=== PATIENT | male | born 1935 | race Caucasian/White ===

== ENCOUNTER 2019-01-22 12:29 | Observation (INO) | payer MEDICARE, OTHER ==
[2019-01-22 13:08] LABS: CHLORIDE,CL 102 mEq/L (98-106); SODIUM,NA 138 mEq/L (136-145)
--- NOTE | 2019-01-22 13:29 | EDM.PDOC ---
ED HPI GENERAL MEDICAL PROBLEM - General Chief Complaint: Cardiovascular Problem Stated Complaint: CP Time Seen by Provider: 01/22/19 12:51 Source of Information: Reports: Patient, EMS History Limitations: Reports: No Limitations - History of Present Illness INITIAL COMMENTS - FREE TEXT/NARRATIVE: Patient presents to ER with EMS with complaints of chest pain. 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 EMS was called for chest pain or diabetic reaction. EMS states was awake and complaining of chest pain on their arrival. Patient does not recall this. Blood sugar was checked, was 133. Enroute to our facility, patient went unresponsive for a few minutes. Did apply sternal rub and he did arouse. Blood pressure was stable. Did not yet have radiation monitor on. Was given 4 baby ASA and 2 nitro after for complaints of chest pain. Alert and oriented on arrival. Denies chest pain, shortness of breath, nausea at this time. "just feel tired". Does admit that he is sore on his chest "on the bone". Initial EKG shows sinus rhythm. Patient was recently in for pre-op with Dr. Maradiaga as is to have back surgery on February 02. EKG and chest xray were normal. Has had recent carotid ultrasound which did show less than 65% blockage. Onset: Today, Sudden Duration: Minutes: Location: Reports: Chest Associated Symptoms: Reports: Chest Pain, Weakness. Denies: Confusion, Cough, Fever/Chills, Loss of Appetite, Nausea/Vomiting, Shortness of Breath Treatments CLINICAL RESEARCH ASSISTANT: Reports: EKG, Nitroglycerin Middle Sternum Pain Score (Numeric/FACES): 6 - Related Data Allergies Allergy/AdvReac Type Severity Reaction Status Date / Time Thai walnut Allergy Cannot Verified 01/22/19 12:38 Remember shellfish derived Allergy Rash Verified 01/22/19 12:38 Home Meds: Home Meds Ascorbic Acid [Vitamin C] 1,000 mg PO DAILY 08/19/14 [History] Clopidogrel Bisulfate [Clopidogrel] 75 mg PO DAILY 08/19/14 [History] Enalapril Maleate 5 mg PO DAILY 08/19/14 [History] Furosemide 80 mg PO DAILY 08/19/14 [History] Simvastatin 20 mg PO BEDTIME 08/19/14 [History] Allopurinol [Zyloprim] 150 mg PO DAILY #0 08/21/14 [Rx] Citalopram Hydrobromide [Celexa] 20 mg PO DAILY #0 08/21/14 [Rx] Insulin Aspart Protam & Aspart [Novolog Mix 70-30 Flexpen Syrn] 36 unit SQ ACBREAKFAST 01/16/15 [History] Insuln Asp Prot/Insulin Aspart [NovoLOG Mix 70-30] 18 units SUBCUT ACDINNER [History] Cefuroxime Axetil [Ceftin] 250 mg PO BID 01/22/19 [History] Clindamycin Phosphate 1 applic TOP BID 01/22/19 [History] amLODIPine Besylate [Amlodipine Besylate] 10 mg PO DAILY 01/22/19 [History] Past Medical History Cardiovascular History: Reports: Hypertension Endocrine/Metabolic History: Reports: Other (See Below) Other Endocrine/Metabolic History: Diabetes, unknown type Social & Family History - Family History Family Medical History: Noncontributory - Tobacco Use Smoking Status *Q: Never Smoker - Caffeine Use Caffeine Use: Reports: None - Recreational Drug Use Recreational Drug Use: No ED ROS GENERAL - Review of Systems Review Of Systems: See Below Constitutional: Reports: Malaise, Weakness. Denies: Fever, Chills HEENT: Reports: No Symptoms Respiratory: Denies: Shortness of Breath Cardiovascular: Reports: Chest Pain. Denies: Edema, Lightheadedness Endocrine: Reports: Fatigue GI/Abdominal: Denies: Abdominal Pain, Nausea, Vomiting : Reports: No Symptoms Musculoskeletal: Reports: No Symptoms Skin: Reports: No Symptoms Neurological: Reports: Syncope, Weakness ED EXAM, GENERAL - Physical Exam Exam: See Below Exam Limited By: No Limitations General Appearance: Alert, WD/WN, No Apparent Distress Ears: Normal External Exam, Normal TMs Nose: Normal Inspection, Normal Mucosa, No Blood Throat/Mouth: Normal Inspection, Normal Oropharynx Head: Normocephalic Neck: Normal Inspection, Supple, Non-Tender Respiratory/Chest: No Respiratory Distress, Lungs Clear, Normal Breath Sounds Cardiovascular: Bradycardia GI/Abdominal: Normal Bowel Sounds, Soft, Non-Tender Extremities: Normal Inspection, Pedal Edema Neurological: Alert, Oriented Skin Exam: Warm, Dry Course - Vital Signs Last Recorded V/S: Last Vital Signs Temp 97.8 F 01/22/19 13:00 Pulse 54 L 01/22/19 13:00 Resp 20 01/22/19 13:00 BP 160/76 H 01/22/19 13:00 Pulse Ox 96 01/22/19 13:00 - Orders/Labs/Meds Orders: Active Orders 24 hr Category Date Time Status Chest 1V Frontal [CR] Routine Exams 01/22/19 Ordered INR,PT,PROTHROMBIN TIME [COAG] Stat Lab 01/22/19 12:48 Ordered PTT,PARTIAL THROMBOPLSTIN TIME [COAG] Stat Lab 01/22/19 12:48 Ordered EKG 12 Lead [EK] Routine Ther 01/22/19 12:38 Ordered Labs: Laboratory Tests 01/22/19 01/22/19 Range/Units 12:48 12:48 WBC 6.6 (5.0-10.0) 10^3/uL RBC 3.95 L (4.50-6.00) 10^6/uL Hgb 11.8 L (14.0-18.0) g/dL Hct 36.0 L (40.0-54.0) % MCV 91.1 (82.0-94.0) fL MCH 29.9 (27.0-32.0) pg MCHC 32.8 L (33.0-38.0) g/dL RDW Coeff of Adrian 13.3 (11.0-15.0) % Plt Count 309 (150-400) 10^3/uL Neut % (Auto) 66.2 (35-85) % Lymph % (Auto) 10.6 (10-55) % [place] % (Auto) 17.7 H (0-16) % Eos % (Auto) 5.0 (0-5) % Baso % (Auto) 0.5 (0-3) % Neut # (Auto) 4.38 (1.80-7.00) 10^3/uL Lymph # (Auto) 0.70 L (1.00-4.80) 10^3/uL [place] # (Auto) 1.17 H (0.00-0.80) 10^3/uL Eos # (Auto) 0.33 (0.00-0.45) 10^3/uL Baso # (Auto) 0.03 10^3/uL Sodium 138 (136-145) mEq/L Potassium 4.1 (3.5-5.0) mEq/L Chloride 102 (98-106) mEq/L Carbon Dioxide 27 (21-32) mmol/L BUN 33 H (7-18) mg/dL Creatinine 2.1 H (0.7-1.3) mg/dL Est Cr Clr Drug Dosing 30.12 mL/min Estimated GFR (MDRD) 30 L (>=60) mL/min Glucose 125 H (75-99) mg/dL Calcium 8.9 (8.4-10.1) mg/dL Lactate Dehydrogenase 180 (100-190) U/L Creatine Kinase 246 H (35-232) U/L Troponin I < 0.017 (0.00-0.06) ng/mL - Re-Assessments/Exams Free Text/Narrative Re-Assessment/Exam: 01/22/19 1330- labs are stable. Creatinine 2.1, baseline around 2. CK elevated. Telemetry notes rate to be the in 50s in ER much of time. Will admit for cardiac monitoring, repeat enzymes. 6 Departure - Departure Time of Disposition: 14:00 Disposition: Refer to Observation Condition: Fair Clinical Impression: Chest pain, Syncope - Problem List & Annotations (1) Chest pain SNOMED Code(s): 61682122 Code(s): R07.9 - CHEST PAIN, UNSPECIFIED Status: Acute Priority: High Current Visit: Yes Onset Date: 08/19/14 (2) Syncope SNOMED Code(s): 955991307 Code(s): R55 - SYNCOPE AND COLLAPSE Status: Acute Priority: High Current Visit: Yes - Problem List Review Problem List Initiated/Reviewed/Updated: Yes - My Orders Last 24 Hours: My Active Orders 01/22/19 12:38 EKG 12 Lead [EK] Routine 01/22/19 12:48 INR,PT,PROTHROMBIN TIME [COAG] Stat PTT,PARTIAL THROMBOPLSTIN TIME [COAG] Stat - Assessment/Plan Admission H&P: Please use this note as an admission H&P Last 24 Hours: My Active Orders 01/22/19 12:38 EKG 12 Lead [EK] Routine 01/22/19 12:48 INR,PT,PROTHROMBIN TIME [COAG] Stat PTT,PARTIAL THROMBOPLSTIN TIME [COAG] Stat Assessment:: Chest Pain Syncope Plan: Admit to observation. Cardiac monitoring. Repeat cardiac enzymes, EKG
[2019-01-22] MEDS ORDERED: Sodium Chloride 0.9% 10 ML Syringe FLUSH PRN (14:34)
[2019-01-22] MEDS ORDERED: Ondansetron 4 MG Tab.DIS PO PRN (14:34)
[2019-01-22] MEDS ORDERED: Acetaminophen 325 MG Tab PO PRN (14:34)
[2019-01-22] MEDS: Enoxaparin 30 MG/0.3 ML Syringe SUBCUT SCH (14:58)
[2019-01-22] MEDS: Insulin NPH HUM/REG Insulin HM 100 UNIT/ML 3 ML Vial SQ SCH (17:41)
[2019-01-22] MEDS: CEFUROXIME 250 MG PO SCH (19:50)
[2019-01-22] MEDS: Simvastatin 20 MG Tab **OWN MED PO SCH (19:51)
[2019-01-23] MEDS ORDERED: Insulin NPH HUM/REG Insulin HM 100 UNIT/ML 3 ML Vial SQ SCH (07:00)
[2019-01-23 07:58] LABS: CHLORIDE,CL 106 mEq/L (98-106); SODIUM,NA 141 mEq/L (136-145)
[2019-01-23] MEDS: CEFUROXIME 250 MG PO SCH ×2 (08:09→19:23)
[2019-01-23] MEDS: Insulin NPH HUM/REG Insulin HM 100 UNIT/ML 3 ML Vial SQ SCH ×2 (08:10→17:14)
[2019-01-23] MEDS: Allopurinol 300 MG Tab **OWN MED PO SCH (08:13)
[2019-01-23] MEDS: amLODIPine 10 MG Tab **OWN MED PO SCH (08:13)
[2019-01-23] MEDS: Clopidogrel 75 MG Tab **OWN MED PO SCH (08:13)
[2019-01-23] MEDS: Enalapril 5 MG Tab PO SCH (08:24)
[2019-01-23] MEDS: Enoxaparin 30 MG/0.3 ML Syringe SUBCUT SCH (15:29)
[2019-01-23] MEDS: Simvastatin 20 MG Tab **OWN MED PO SCH (19:23)
--- NOTE | 2019-01-23 22:34 | PCM.PN ---
- General Info Date of Service: 01/23/19 Admission Dx/Problem (Free Text): Syncope Bradycardia Functional Status: Reports: Pain Controlled, Tolerating Diet, Ambulating - Review of Systems General: Denies: Fever, Weakness, Fatigue HEENT: Denies: Ear Pain, Sinus Congestion, Sore Throat Pulmonary: Denies: Shortness of Breath, Cough Cardiovascular: Denies: Chest Pain, Edema, Lightheadedness Gastrointestinal: Denies: Abdominal Pain, Nausea, Vomiting Genitourinary: Reports: No Symptoms Musculoskeletal: Reports: No Symptoms Skin: Reports: No Symptoms Neurological: Reports: No Symptoms - Patient Data Vitals - Most Recent: Last Vital Signs Temp 98.8 F 01/23/19 19:56 Pulse 63 01/23/19 19:56 Resp 16 01/23/19 19:56 BP 154/63 H 01/23/19 19:56 Pulse Ox 96 01/23/19 19:56 Weight - Most Recent: 239 lb Lab Results Last 24 Hours: Laboratory Results - last 24 hr 01/23/19 01/23/19 01/23/19 Range/Units 06:55 06:55 07:59 WBC 6.7 (5.0-10.0) 10^3/uL RBC 3.76 L (4.50-6.00) 10^6/uL Hgb 11.2 L (14.0-18.0) g/dL Hct 34.8 L (40.0-54.0) % MCV 92.6 (82.0-94.0) fL MCH 29.8 (27.0-32.0) pg MCHC 32.2 L (33.0-38.0) g/dL RDW Coeff of Adrian 13.4 (11.0-15.0) % Plt Count 282 (150-400) 10^3/uL Neut % (Auto) 68.9 (35-85) % Lymph % (Auto) 12.6 (10-55) % [place] % (Auto) 14.7 (0-16) % Eos % (Auto) 3.5 (0-5) % Baso % (Auto) 0.3 (0-3) % Neut # (Auto) 4.59 (1.80-7.00) 10^3/uL Lymph # (Auto) 0.84 L (1.00-4.80) 10^3/uL [place] # (Auto) 0.98 H (0.00-0.80) 10^3/uL Eos # (Auto) 0.23 (0.00-0.45) 10^3/uL Baso # (Auto) 0.02 10^3/uL Sodium 141 (136-145) mEq/L Potassium 4.0 (3.5-5.0) mEq/L Chloride 106 (98-106) mEq/L Carbon Dioxide 30 (21-32) mmol/L BUN 32 H (7-18) mg/dL Creatinine 1.9 H (0.7-1.3) mg/dL Est Cr Clr Drug Dosing 33.29 mL/min Estimated GFR (MDRD) 34 L (>=60) mL/min Glucose 112 H (75-99) mg/dL POC Glucose 106 H (75-105) mg/dl Calcium 8.5 (8.4-10.1) mg/dL Creatine Kinase 273 H (35-232) U/L Troponin I < 0.017 (0.00-0.06) ng/mL 01/23/19 Range/Units 17:11 WBC (5.0-10.0) 10^3/uL RBC (4.50-6.00) 10^6/uL Hgb (14.0-18.0) g/dL Hct (40.0-54.0) % MCV (82.0-94.0) fL MCH (27.0-32.0) pg MCHC (33.0-38.0) g/dL RDW Coeff of Adrian (11.0-15.0) % Plt Count (150-400) 10^3/uL Neut % (Auto) (35-85) % Lymph % (Auto) (10-55) % [place] % (Auto) (0-16) % Eos % (Auto) (0-5) % Baso % (Auto) (0-3) % Neut # (Auto) (1.80-7.00) 10^3/uL Lymph # (Auto) (1.00-4.80) 10^3/uL [place] # (Auto) (0.00-0.80) 10^3/uL Eos # (Auto) (0.00-0.45) 10^3/uL Baso # (Auto) 10^3/uL Sodium (136-145) mEq/L Potassium (3.5-5.0) mEq/L Chloride (98-106) mEq/L Carbon Dioxide (21-32) mmol/L BUN (7-18) mg/dL Creatinine (0.7-1.3) mg/dL Est Cr Clr Drug Dosing mL/min Estimated GFR (MDRD) (>=60) mL/min Glucose (75-99) mg/dL POC Glucose 134 H (75-105) mg/dl Calcium (8.4-10.1) mg/dL Creatine Kinase (35-232) U/L Troponin I (0.00-0.06) ng/mL Med Orders - Current: Current Medications Acetaminophen (Tylenol) 650 mg PO Q4H PRN PRN Reason: Pain (Mild 1-3)/fever Allopurinol (Zyloprim) 150 mg PO DAILY [facility] Last Admin: 01/23/19 08:13 Dose: 150 mg Amlodipine Besylate (Norvasc) 10 mg PO DAILY [facility] Last Admin: 01/23/19 08:13 Dose: 10 mg Cefuroxime Axetil (Ceftin) 250 mg PO BID [facility] Last Admin: 01/23/19 19:23 Dose: 250 mg Clopidogrel Bisulfate (Plavix) 75 mg PO DAILY [facility] Last Admin: 01/23/19 08:13 Dose: 75 mg Enalapril Maleate (Vasotec) 5 mg PO DAILY [facility] Last Admin: 01/23/19 08:24 Dose: 5 mg Enoxaparin Sodium (Lovenox) 30 mg SUBCUT Q24H [facility] Last Admin: 01/23/19 15:29 Dose: 30 mg Insulin NPH Beef/Pork (Humulin 70-30) 20 unit SQ ACDINNER [facility] Last Admin: 01/23/19 17:14 Dose: 20 unit Insulin NPH Beef/Pork (Humulin 70-30) 40 unit SQ DAILY [facility] Last Admin: 01/23/19 08:10 Dose: 40 unit Ondansetron HCl (Zofran Odt) 4 mg PO Q4H PRN PRN Reason: nausea, able to take PO Citalopram 20 Mg Tab (Own Med) 0 each PO DAILY [facility] Last Admin: 01/23/19 08:13 Dose: 1 each Furosemide 80 Mg Tab (Own Med) 0 each PO DAILY [facility] Last Admin: 01/23/19 08:12 Dose: 1 each Simvastatin (Zocor) 20 mg PO BEDTIME [facility] Last Admin: 01/23/19 19:23 Dose: 20 mg Sodium Chloride (Saline Flush) 10 ml FLUSH ASDIRECTED PRN PRN Reason: Keep Vein Open Discontinued Medications Insulin NPH Beef/Pork (Humulin 70-30) 40 unit SQ ACBREAKFAST [facility] - Exam General: Alert, Oriented HEENT: Mucous Membr. Moist/[place] Neck: Supple Lungs: Clear to Auscultation, Normal Respiratory Effort Cardiovascular: Regular Rate, Regular Rhythm GI/Abdominal Exam: Normal Bowel Sounds, Soft, Non-Tender Extremities: Normal Inspection, No Pedal Edema Skin: Warm, Dry Neurological: No New Focal Deficit - Problem List & Annotations (1) Chest pain SNOMED Code(s): 88403553 Code(s): R07.9 - CHEST PAIN, UNSPECIFIED Status: Acute Priority: High Current Visit: Yes Onset Date: 08/19/14 (2) Syncope SNOMED Code(s): 902569223 Code(s): R55 - SYNCOPE AND COLLAPSE Status: Acute Priority: High Current Visit: Yes Qualifiers: Encounter type: initial encounter - Problem List Review Problem List Initiated/Reviewed/Updated: Yes - My Orders Last 24 Hours: My Active Orders 01/23/19 08:00 Allopurinol [Zyloprim] 150 mg PO DAILY Clopidogrel [Plavix] 75 mg PO DAILY Enalapril [Vasotec] 5 mg PO DAILY Insulin NPH Hum/Reg Insulin Hm [Humulin 70-30] 40 unit SQ DAILY Patient's Own Medication [Ptom] 0 each PO DAILY Patient's Own Medication [Ptom] 0 each PO DAILY amLODIPine [Norvasc] 10 mg PO DAILY 01/23/19 09:34 Head wo Cont [CT] Routine - Assessment Assessment:: Syncope Bradycardia - Plan Plan:: Patient is feeling good today. Denies any shortness of breath, chest pain, or dizziness. He feels the incident yesterday may have been related to his blood sugar as it has happened similar to this before. He is ambulating in room today without any dizziness or lightheadedness. Telemetry has been stable now with rate in 70s. Did drop to 50s during night but patient offered no complaints. Labs are stable today. WBC normal at 6.7. Creatinine 1.9. Serial troponins have been negative. CK is high yet at 273. Blood pressure has been high, 166/67 this am. Will obtain CT scan of head. Will plan for cardiolyte later this week. Continue cardiac monitoring. Probable discharge home in am.
[2019-01-24] MEDS: Enalapril 5 MG Tab PO SCH (08:02)
[2019-01-24] MEDS: amLODIPine 10 MG Tab **OWN MED PO SCH (08:03)
[2019-01-24] MEDS: CEFUROXIME 250 MG PO SCH (08:03)
[2019-01-24] MEDS: Allopurinol 300 MG Tab **OWN MED PO SCH (08:03)
[2019-01-24] MEDS: Clopidogrel 75 MG Tab **OWN MED PO SCH (08:04)
[2019-01-24] MEDS: Insulin NPH HUM/REG Insulin HM 100 UNIT/ML 3 ML Vial SQ SCH (08:05)
--- NOTE | 2019-01-24 09:25 | PCM.DCSUM1 ---
Discharge Summary - Hospital Course Free Text/Narrative:: Patient presented to ER with complaints of chest pain and questionable syncope. Patient was at [employer] and recalls filling the wine glasses. Sat down, felt weak. Was complaining of chest pain and questioned a diabetic reaction. EMS was called. Enroute to [place], patient became unresponsive for short period. Was not yet hooked up to the monitor. Aroused with sternal rub. Blood sugar per EMS was 133. Blood pressure stable. Heart rate in the 50s. On arrival to the ER, patient is alert and oriented. Chest sore but no further chest pain. Feels weak. No shortness of breath. Has had work up as of late for his pre-op for upcoming back surgery. Had recent echo and carotid ultrasound which were stable. Work up in ER did show normal troponin, elevated CK. EKG NSR. Cardiac monitoring shows bradycardia. Admitted for further monitoring, serial enzymes. Diagnosis: Stroke: No Modified [place] Scale: No Symptoms at All Modified [place] Scale Score: 0 - Discharge Data Discharge Date: 01/24/19 Discharge Disposition: Home, Self-Care 01 Condition: Good - Discharge Diagnosis/Problem(s) (1) Chest pain SNOMED Code(s): 97705354 ICD Code: R07.9 - CHEST PAIN, UNSPECIFIED Status: Acute Priority: High Onset Date: 08/19/14 (2) Syncope SNOMED Code(s): 055595355 ICD Code: R55 - SYNCOPE AND COLLAPSE Status: Acute Priority: High Qualifiers: Encounter type: initial encounter - Patient Summary/Data Complications: none Hospital Course: Patient is doing well. Was noted to be in bradycardia in ER, has stabilized now in the 70s. No further chest pain or shortness of breath. No dizziness. CT scan of head was done, negative. Blood sugars have been stable. Blood pressure has been high systolically. Labs have remained stable. CK high, troponins negative. Creatinine 2.1 on admit, improved to 1.9, which is chronic for the patient. Will proceed with cardiolyte on with Dr. Maradiaga. - Patient Instructions Diet: Usual Diet as Tolerated Activity: As Tolerated - Discharge Plan *PRESCRIPTION DRUG MONITORING PROGRAM REVIEWED*: Not Applicable *COPY OF PRESCRIPTION DRUG MONITORING REPORT IN PATIENT ALLISON: Not Applicable Home Medications: Home Meds Ascorbic Acid [Vitamin C] 1,000 mg PO DAILY 08/19/14 [History] Clopidogrel Bisulfate [Clopidogrel] 75 mg PO DAILY 08/19/14 [History] Enalapril Maleate 5 mg PO DAILY 08/19/14 [History] Furosemide 80 mg PO DAILY 08/19/14 [History] Simvastatin 20 mg PO BEDTIME 08/19/14 [History] Allopurinol [Zyloprim] 150 mg PO DAILY #0 08/21/14 [Rx] Citalopram Hydrobromide [Celexa] 20 mg PO DAILY #0 08/21/14 [Rx] Insulin Aspart Protam & Aspart [Novolog Mix 70-30 Flexpen Syrn] 20 unit SQ ACDINNER 01/16/15 [History] Insuln Asp Prot/Insulin Aspart [NovoLOG Mix 70-30] 40 units SUBCUT ACBREAKFAST 01/16/15 [History] Cefuroxime Axetil [Ceftin] 250 mg PO BID 01/22/19 [History] Clindamycin Phosphate 1 applic TOP BID 01/22/19 [History] amLODIPine Besylate [Amlodipine Besylate] 10 mg PO DAILY 01/22/19 [History] Patient Handouts: Syncope Forms: ED Department Discharge Referrals: Ishan Maradiaga MD [Primary Care Provider] - (Cardiolyte on with Dr. Maradiaga) - Discharge Summary/Plan Comment DC Time >30 min.: No - General Info Date of Service: 01/24/19 Admission Dx/Problem (Free Text: Syncope Bradycardia Functional Status: Reports: Pain Controlled, Tolerating Diet, Ambulating - Review of Systems General: Denies: Weakness, Fatigue, Malaise HEENT: Denies: Ear Pain, Headaches, Sinus Congestion Pulmonary: Denies: Shortness of Breath Cardiovascular: Denies: Chest Pain, Edema, Lightheadedness Gastrointestinal: Denies: Abdominal Pain, Nausea, Vomiting Genitourinary: Reports: No Symptoms Musculoskeletal: Reports: No Symptoms Skin: Reports: No Symptoms Neurological: Reports: No Symptoms - Patient Data Vitals - Most Recent: Last Vital Signs Temp 98 F 01/24/19 04:00 Pulse 63 01/23/19 19:56 Resp 18 01/24/19 04:00 BP 165/64 H 01/24/19 08:03 Pulse Ox 96 01/24/19 04:00 Weight - Most Recent: 239 lb Lab Results - Last 24 hrs: Laboratory Results - last 24 hr 01/23/19 01/24/19 Range/Units 17:11 07:51 POC Glucose 134 H 179 H (75-105) mg/dl Med Orders - Current: Current Medications Acetaminophen (Tylenol) 650 mg PO Q4H PRN PRN Reason: Pain (Mild 1-3)/fever Allopurinol (Zyloprim) [address] [facility] Last Admin: 01/24/19 08:03 Dose: 150 mg Amlodipine Besylate (Norvasc) [address] [facility] Last Admin: 01/24/19 08:03 Dose: 10 mg Cefuroxime Axetil (Ceftin) [address] [facility] Last Admin: 01/24/19 08:03 Dose: 250 mg Clopidogrel Bisulfate (Plavix) [address] [facility] Last Admin: 01/24/19 08:04 Dose: 75 mg Enalapril Maleate (Vasotec) [address] [facility] Last Admin: 01/24/19 08:02 Dose: 5 mg Enoxaparin Sodium (Lovenox) [address] [facility] Last Admin: 01/23/19 15:29 Dose: 30 mg Insulin NPH Beef/Pork (Humulin 70-30) [address] [facility] Last Admin: 01/23/19 17:14 Dose: 20 unit Insulin NPH Beef/Pork (Humulin 70-30) [address] [facility] Last Admin: 01/24/19 08:05 Dose: 40 unit Ondansetron HCl (Zofran Odt) 4 mg PO Q4H PRN PRN Reason: nausea, able to take PO Citalopram 20 Mg Tab (Own Med) [address] [facility] Last Admin: 01/24/19 08:03 Dose: 1 each Furosemide 80 Mg Tab (Own Med) [address] [facility] Last Admin: 01/24/19 08:02 Dose: 1 each Simvastatin (Zocor) [address] [facility] Last Admin: 01/23/19 19:23 Dose: 20 mg Sodium Chloride (Saline Flush) 10 ml FLUSH ASDIRECTED PRN PRN Reason: Keep Vein Open Discontinued Medications Insulin NPH Beef/Pork (Humulin 70-30) [address] [facility] - Exam General: Reports: Alert, Oriented HEENT: Reports: Mucous Membr. Moist/[place] Neck: Reports: Supple Lungs: Reports: Clear to Auscultation, Normal Respiratory Effort Cardiovascular: Reports: Regular Rate, Regular Rhythm GI/Abdominal Exam: Normal Bowel Sounds, Soft, Non-Tender Extremities: Normal Inspection, No Pedal Edema Skin: Reports: Warm, Dry Neurological: Reports: No New Focal Deficit
[2019-01-24 15:35] VITALS: BP 138/53
== END 2019-01-24 15:00 | disposition home or self-care (01) ==
LOC: CC.ED 12:29 → CC.MS 13:58 → CC.ED 14:00 → UNDOADMOB 14:00 → CC.MS 14:00
PROVIDERS: ADMIT Physician Assistant Medical; ATTEND Family Medicine
DX: R07.2 Precordial pain (principal); R55 Syncope and collapse; R00.1 Bradycardia, unspecified; I10 Essential (primary) hypertension; E11.9 Type 2 diabetes mellitus without complications; Z91.018 Allergy to other foods; Z91.013 Allergy to seafood; Z79.02 Long term (current) use of antithrombotics/antiplatelets; Z79.4 Long term (current) use of insulin; Z79.899 Other long term (current) drug therapy
CPT/HCPCS: 36415; 70450; 71045; 80048; 82550; 82962; 83615; 84484; 85025; 85610; 85730; 93005; 93010; 96372; 99217; 99220; 99225; 99285-25; A9270-GY; G0378; J1650; J1815-GY

== ENCOUNTER 2019-02-26 11:04 | Emergency (ER) | payer MEDICARE, OTHER ==
[2019-02-26] MEDS ORDERED: cefTRIAXone 1 GM Vial ONE (11:07)
[2019-02-26 11:08] VITALS: BP 147/52; PULSE 76
--- NOTE | 2019-02-26 11:16 | EDM.PDOC ---
ED HPI GENERAL MEDICAL PROBLEM - General Chief Complaint: General Stated Complaint: L face swelling Time Seen by Provider: 02/26/19 11:04 Source of Information: Reports: Patient, Family History Limitations: Reports: No Limitations - History of Present Illness INITIAL COMMENTS - FREE TEXT/NARRATIVE: in with c/o sinus pain and pressure and pressure in his left ear x 2 weeks, also c/o mild left maxillary swelling, no dental pain, no fever or chills, no unusual neck/back pain or stiffness, no sore throat, no cp or sob, no abd pain, no nvdc Onset: Gradual Duration: Week(s): (2) Location: Reports: Face, Other (ear) Quality: Reports: Ache, Pressure Severity: Mild Improves with: Reports: None Worsens with: Reports: None Associated Symptoms: Denies: Chest Pain, Cough, Fever/Chills, Loss of Appetite, Nausea/Vomiting, Rash, Shortness of Breath, Weakness Treatments CANDY FEEDER: Reports: Other (see below) (none) - Related Data Allergies Allergy/AdvReac Type Severity Reaction Status Date / Time Italian walnut Allergy Cannot Verified 02/26/19 11:11 Remember shellfish derived Allergy Rash Verified 02/26/19 11:11 Home Meds: Home Meds Ascorbic Acid [Vitamin C] 1,000 mg PO DAILY 08/19/14 [History] Clopidogrel Bisulfate [Clopidogrel] 75 mg PO DAILY 08/19/14 [History] Enalapril Maleate 5 mg PO DAILY 08/19/14 [History] Furosemide 80 mg PO DAILY 08/19/14 [History] Simvastatin 20 mg PO BEDTIME 08/19/14 [History] Allopurinol [Zyloprim] 150 mg PO DAILY #0 08/21/14 [Rx] Citalopram Hydrobromide [Celexa] 20 mg PO DAILY #0 08/21/14 [Rx] Clindamycin Phosphate 1 applic TOP BID 01/22/19 [History] amLODIPine Besylate [Amlodipine Besylate] 10 mg PO DAILY 01/22/19 [History] Acetaminophen [Tylenol Extra Strength] 500 mg PO ASDIRECTED PRN 01/26/19 [ History] Cyanocobalamin (Vitamin B-12) [Cyanocobalamin Injection] 1 each INJECT ASDIRECTED 01/26/19 [History] Hydrocortisone [Hydrocortisone 1% Crm] 1 each TOP ASDIRECTED 01/26/19 [History] Insulin Lispro Protamin/Lispro [Humalog Mix 75-25 Kwikpen] 20 units SQ ASDIRECTED 01/26/19 [History] Insulin Lispro Protamin/Lispro [Humalog Mix 75-25 Kwikpen] 40 units SQ ACBREAKFAST 01/26/19 [History] diphenhydrAMINE HCl/Zinc Acet [Benadryl Itch Stopping Crm] 1 each TOP DAILY PRN 01/26/19 [History] Amoxicillin/Clavulanate K [Augmentin 875-125 MG] 1 tab PO BID 10 Days #20 tablet 02/26/19 [Rx] Cetirizine HCl/Pseudoephedrine [Zyrtec-D Tablet] 1 each PO BID 10 Days #20 tab.er.12h 02/26/19 [Rx] Past Medical History Cardiovascular History: Reports: Hypertension Endocrine/Metabolic History: Reports: Other (See Below) Other Endocrine/Metabolic History: Diabetes, unknown type Social & Family History - Family History Family Medical History: Noncontributory - Caffeine Use Caffeine Use: Reports: None - Living Situation & Occupation Living situation: Reports: with Family Occupation: Retired ED ROS GENERAL - Review of Systems Review Of Systems: See Below Constitutional: Reports: No Symptoms. Denies: Fever, Chills HEENT: Reports: Ear Pain (right), Sinus Problem. Denies: Ear Discharge, Eye Pain, Nosebleed, Throat Pain Respiratory: Reports: No Symptoms. Denies: Shortness of Breath, Wheezing, Cough Cardiovascular: Reports: No Symptoms. Denies: Chest Pain Endocrine: Reports: No Symptoms GI/Abdominal: Reports: No Symptoms. Denies: Abdominal Pain, Nausea, Vomiting : Reports: No Symptoms Musculoskeletal: Reports: No Symptoms Skin: Reports: No Symptoms Neurological: Reports: No Symptoms. Denies: Dizziness, Headache Psychiatric: Reports: No Symptoms ED EXAM, GENERAL - Physical Exam Exam: See Below Exam Limited By: No Limitations General Appearance: Alert, WD/WN, No Apparent Distress Ears: Normal External Exam, Normal Canal. No: Normal TMs (left tm red and buldging ) Ear Exam: Right Ear: TM normal, Left Ear: Erythema, TM Bulging, Bilateral Ear: Auricle Normal, Canal Normal Nose: Normal Inspection, Nasal Tenderness, Nasal Swelling, Nasal Drainage. No: Normal Mucosa Throat/Mouth: Normal Inspection, Normal Lips, Normal Oropharynx, Normal Voice, No Airway Compromise Head: Atraumatic, Normocephalic Neck: Normal Inspection, Supple, Non-Tender, Full Range of Motion. No: Lymphadenopathy (L), Lymphadenopathy (R) Respiratory/Chest: No Respiratory Distress, Lungs Clear, Normal Breath Sounds, Chest Non-Tender Cardiovascular: Normal Peripheral Pulses, Regular Rate, Rhythm Peripheral Pulses: 2+: Radial (R) GI/Abdominal: Soft, Non-Tender Back Exam: Normal Inspection, Full Range of Motion Extremities: Normal Inspection, Normal Range of Motion, Non-Tender, Normal Capillary Refill Neurological: Alert, Oriented, Normal Cognition, Normal Gait, No Motor/Sensory Deficits Psychiatric: Normal Affect, Normal Mood Skin Exam: Warm, Dry, Intact, Normal Color Course - Vital Signs Last Recorded V/S: Last Vital Signs Temp 36.6 C 02/26/19 11:05 Pulse 76 02/26/19 11:05 Resp 18 02/26/19 11:05 BP 147/52 H 02/26/19 11:05 Pulse Ox 99 02/26/19 11:05 Departure - Departure Time of Disposition: 11:18 Disposition: Home, Self-Care 01 Condition: Good Clinical Impression: Sinusitis, LOM (left otitis media) - Discharge Information *PRESCRIPTION DRUG MONITORING PROGRAM REVIEWED*: Not Applicable *COPY OF PRESCRIPTION DRUG MONITORING REPORT IN PATIENT ALLISON: Not Applicable Prescriptions: Amoxicillin/Clavulanate K [Augmentin 875-125 MG] 1 tab PO BID 10 Days #20 tablet Cetirizine HCl/Pseudoephedrine [Zyrtec-D Tablet] 1 each PO BID 10 Days #20 tab.er.12h Instructions: Sinusitis, Adult, [id number], Otitis Media, Adult Additional Instructions: increase fluids augmentin 875mg 2 x a day for 10 days zyrtec-d 1 tablet 2 x a day for 10 days follow up with the family doctor this week, call in am for an appointment time return to the ER sooner if worse or problems - Problem List & Annotations (1) LOM (left otitis media) SNOMED Code(s): 37316234 Code(s): H66.92 - OTITIS MEDIA, UNSPECIFIED, LEFT EAR Status: Acute Priority: Medium Qualifiers: Chronicity: unspecified (2) Sinusitis SNOMED Code(s): 36668629 Code(s): J32.9 - CHRONIC SINUSITIS, UNSPECIFIED Status: Acute Priority: Medium Qualifiers: Sinusitis location: maxillary Chronicity: acute Recurrence: non- recurrent Qualified Code(s): J01.00 - Acute maxillary sinusitis, unspecified - Problem List Review Problem List Initiated/Reviewed/Updated: Yes - Assessment/Plan Plan: as above
[2019-02-26] MEDS ORDERED: cefTRIAXone 1 GM Vial IM ONE (11:17)
== END 2019-02-26 11:33 | disposition home or self-care (01) ==
LOC: CC.ED 11:04
DX: J32.9 Chronic sinusitis, unspecified (principal); H66.92 Otitis media, unspecified, left ear; I10 Essential (primary) hypertension; E11.9 Type 2 diabetes mellitus without complications; Z91.018 Allergy to other foods; Z91.013 Allergy to seafood; Z79.4 Long term (current) use of insulin; Z79.899 Other long term (current) drug therapy
CPT/HCPCS: 96372; 99283; J0696

== ENCOUNTER 2019-03-23 16:09 | Observation (INO) | payer MEDICARE, OTHER ==
[~2019-03-23 16:09] MED LIST: Ondansetron 4 MG/2 ML SDV ONE
[2019-03-23] MEDS ORDERED: Ondansetron 4 MG/2 ML SDV IVPUSH ONE (16:23)
[2019-03-23] MEDS ORDERED: Lactated Ringers 1,000 ML ONE (16:34)
[2019-03-23] MEDS ORDERED: Lactated Ringers 500 ML IV SCH (16:45)
[2019-03-23] MEDS ORDERED: Pantoprazole 40 MG Vial IVPUSH STA (17:06)
--- NOTE | 2019-03-23 17:12 | EDM.PDOC ---
ED HPI GENERAL MEDICAL PROBLEM - General Chief Complaint: Chest Pain Stated Complaint: Chest Pain Time Seen by Provider: 03/23/19 16:30 Source of Information: Reports: Patient, Family History Limitations: Reports: No Limitations - History of Present Illness INITIAL COMMENTS - FREE TEXT/NARRATIVE: Abdias is an 83 year old male who presents to the ED via EMS with c/o epigastric pain and vomiting. He reports he was feeling fine this morning. Went to coffee at the [employer] cafe around 1500. Reports he drank some coffee. Reports shortly after this he became nauseated and has sudden onset mid epigastric pain. He reports he then began vomiting. Had 1 large emesis enroute to ED. He reports he was very sweaty and is stomach is upset. He denies any diarrhea, fever, chills, shortness of breath, cough, weakness. Did have recent cardiac workup, including normal Lexiscan a few months ago. Daughter reports he struggled with a sinus infection earlier this month. Onset: Today, Sudden Onset Date: 03/23/19 Onset Time: 15:30 Duration: Improving Location: Reports: Abdomen (epigastric) Quality: Reports: Ache, Burning, Sharp Associated Symptoms: Reports: Chest Pain, Diaphoresis, Loss of Appetite, Nausea/ Vomiting. Denies: Confusion, Cough, cough w sputum, Fever/Chills, Headaches, Malaise, Rash, Seizure, Shortness of Breath, Syncope, Weakness Treatments TRAVEL REGISTERED NURSE NICU: Reports: Aspirin, Nitroglycerin - Related Data Allergies Allergy/AdvReac Type Severity Reaction Status Date / Time Montenegrin walnut Allergy Cannot Verified 03/23/19 16:35 Remember shellfish derived Allergy Rash Verified 03/23/19 16:35 Home Meds: Home Meds Ascorbic Acid [Vitamin C] 1,000 mg PO DAILY 08/19/14 [History] Clopidogrel Bisulfate [Clopidogrel] 75 mg PO DAILY 08/19/14 [History] Enalapril Maleate 5 mg PO DAILY 08/19/14 [History] Furosemide 80 mg PO DAILY 08/19/14 [History] Simvastatin 20 mg PO BEDTIME 08/19/14 [History] Allopurinol [Zyloprim] 150 mg PO DAILY #0 08/21/14 [Rx] Citalopram Hydrobromide [Celexa] 20 mg PO DAILY #0 08/21/14 [Rx] Clindamycin Phosphate 1 applic TOP BID 01/22/19 [History] amLODIPine Besylate [Amlodipine Besylate] 10 mg PO DAILY 01/22/19 [History] Acetaminophen [Tylenol Extra Strength] 500 mg PO ASDIRECTED PRN 01/26/19 [ History] Cyanocobalamin (Vitamin B-12) [Cyanocobalamin Injection] 1 each INJECT ASDIRECTED 01/26/19 [History] Hydrocortisone [Hydrocortisone 1% Crm] 1 each TOP ASDIRECTED 01/26/19 [History] Insulin Lispro Protamin/Lispro [Humalog Mix 75-25 Kwikpen] 20 units SQ ASDIRECTED 01/26/19 [History] Insulin Lispro Protamin/Lispro [Humalog Mix 75-25 Kwikpen] 40 units SQ ACBREAKFAST 01/26/19 [History] diphenhydrAMINE HCl/Zinc Acet [Benadryl Itch Stopping Crm] 1 each TOP DAILY PRN 01/26/19 [History] Past Medical History Cardiovascular History: Reports: Hypertension Endocrine/Metabolic History: Reports: Other (See Below) Other Endocrine/Metabolic History: Diabetes, unknown type Social & Family History - Family History Family Medical History: Noncontributory - Tobacco Use Smoking Status *Q: Never Smoker Second Hand Smoke Exposure: No - Caffeine Use Caffeine Use: Reports: None - Recreational Drug Use Recreational Drug Use: No - Living Situation & Occupation Living situation: Reports: with Family Occupation: Retired ED ROS GENERAL - Review of Systems Review Of Systems: See Below Constitutional: Reports: Malaise, Decreased Appetite. Denies: Fever, Chills, Weakness, Fatigue, Diaphoresis HEENT: Reports: Rhinitis. Denies: Ear Discharge, Ear Pain Respiratory: Reports: No Symptoms. Denies: Shortness of Breath, Wheezing, Pleuritic Chest Pain, Cough, Sputum Cardiovascular: Reports: Chest Pain, Dyspnea on Exertion, Lightheadedness. Denies: Edema, Orthopnea, Palpitations, Syncope Endocrine: Reports: Fatigue. Denies: High Glucose, Low Glucose GI/Abdominal: Reports: Abdominal Pain, Nausea, Vomiting. Denies: Black Stool, Bloody Stool, Constipation, Diarrhea, Decreased Appetite, Hematemesis : Denies: Dysuria, Flank Pain, Frequency, Urgency Musculoskeletal: Reports: No Symptoms Skin: Reports: Pallor, Diaphoresis. Denies: Cyanosis Neurological: Reports: Dizziness, Weakness. Denies: Confusion, Headache, Numbness, Tingling Psychiatric: Reports: Anxiety ED EXAM, GI/ABD - Physical Exam Exam: See Below Exam Limited By: Other (Anxious, tearful, excessive crying) General Appearance: Alert, WD/WN, Anxious, Active Emesis, Other (excessive crying) Eyes: Bilateral: EOMI Ears: Normal External Exam, Normal Canal, Hearing Grossly Normal, Normal TMs Nose: Normal Inspection, Normal Mucosa, No Blood Throat/Mouth: Normal Inspection, Normal Oropharynx, No Airway Compromise Head: Atraumatic, Normocephalic Neck: Normal Inspection, Supple, Non-Tender, Full Range of Motion Respiratory/Chest: No Respiratory Distress, Normal Breath Sounds, No Accessory Muscle Use, Chest Non-Tender, Rhonchi (RLL) Cardiovascular: Normal Peripheral Pulses, Regular Rate, Rhythm, No Edema, No Gallop, No JVD, No Murmur, No Rub GI/Abdominal Exam: Normal Bowel Sounds, Soft, No Distention, Tender (epigastric area). No: Rebound Back Exam: Normal Inspection, Full Range of Motion, NT Extremities: Normal Inspection, Normal Range of Motion, Non-Tender, Normal Capillary Refill, No Pedal Edema Neurological: Alert, Oriented, CN II-XII Intact, Normal Cognition, Normal Reflexes, No Motor/Sensory Deficits Psychiatric: Anxious, Tearful Skin Exam: Warm, Dry, Intact, Normal Color, No Rash. No: Diaphoretic (at time of exam) Lymphatic: No Adenopathy Course - Vital Signs Last Recorded V/S: Last Vital Signs Temp 97.8 F 03/23/19 17:55 Pulse 71 03/23/19 17:55 Resp 18 03/23/19 17:55 BP 133/71 03/23/19 17:55 Pulse Ox 97 03/23/19 17:55 - Orders/Labs/Meds Orders: Active Orders 24 hr Category Date Time Status Patient Status [ADT] Routine ADT 03/23/19 17:55 Active Cardiac Monitoring [RC] 0800,2000 Care 03/23/19 17:55 Active Intake and Output [RC] 0600,1800 Care 03/23/19 17:55 Active Oxygen Therapy [RC] .PRN Care 03/23/19 17:55 Active Pulse Oximetry [RC] .PRN Care 03/23/19 17:55 Active Up ad Charlene [RC] .PRN Care 03/23/19 17:55 Active VTE/DVT Education [RC] .PRN Care 03/23/19 17:55 Active Vital Signs [RC] 0800,1200,1600,2000,0000,0400 Care 03/23/19 17:55 Active Clear Liquid Diet [DIET] Diet 03/23/19 Dinner Active Chest 1V Frontal [CR] Stat Exams 03/23/19 16:21 Taken BASIC METABOLIC PANEL,BMP [CHEM] AM Lab 03/24/19 05:11 Ordered C-REACTIVE PROTEIN [CHEM] AM Lab 03/24/19 05:11 Ordered CBC WITH AUTO DIFF [HEME] AM Lab 03/24/19 05:11 Ordered TROPONIN I [CHEM] AM Lab 03/24/19 05:11 Ordered UA RFX MARCIN AND CULT IF INDIC [URIN] Stat Lab 03/23/19 16:42 Ordered Acetaminophen [Tylenol] Med 03/23/19 17:55 Active 650 mg PO Q4H PRN Allopurinol [Zyloprim] Med 03/24/19 08:00 Active 150 mg PO DAILY Citalopram Hydrobromide [Celexa] Med 03/24/19 08:00 Active 20 mg PO DAILY Clopidogrel [Plavix] Med 03/24/19 08:00 Active 75 mg PO DAILY Docusate Sodium [Colace] Med 03/23/19 17:55 Active 100 mg PO BID PRN Enalapril [Vasotec] Med 03/24/19 08:00 Active 5 mg PO DAILY Enoxaparin [Lovenox] Med 03/23/19 17:55 Active 30 mg SUBCUT Q24H Furosemide [Lasix] Med 03/24/19 08:00 Active 80 mg PO DAILY Insulin Lispro Protamin/Lispro [Humalog Mix 75-25 Med 03/23/19 17:55 Active Kwikpen] 20 units SQ ASDIRECTED Insulin Lispro Protamin/Lispro [Humalog Mix 75-25 Med 03/24/19 07:00 Active Kwikpen] 40 units SQ ACBREAKFAST Ondansetron [Zofran] Med 03/23/19 17:55 Active 4 mg IV Q6H PRN Pantoprazole [ProTONIX IV] Med 03/24/19 07:30 Active 40 mg IVPUSH Q24H Simvastatin [Zocor] Med 03/24/19 08:00 Once 20 mg PO DAILY ONE Sodium Chloride 0.45% 1,000 ml Med 03/23/19 17:55 Active IV ASDIRECTED Temazepam [Restoril] Med 03/23/19 17:55 Active 15 mg PO BEDTIME PRN amLODIPine [Norvasc] Med 03/24/19 08:00 Active 10 mg PO DAILY Resuscitation Status Routine Resus Stat 03/23/19 17:25 Ordered Medication Orders Acetaminophen (Tylenol) 650 mg PO Q4H PRN PRN Reason: Pain (Mild 1-3)/fever Allopurinol (Zyloprim) 150 mg PO DAILY KRISTY Amlodipine Besylate (Norvasc) 10 mg PO DAILY KRISTY Clopidogrel Bisulfate (Plavix) 75 mg PO DAILY KRISTY Docusate Sodium (Colace) 100 mg PO BID PRN PRN Reason: Constipation Enalapril Maleate (Vasotec) 5 mg PO DAILY [facility] Enoxaparin Sodium (Lovenox) 30 mg SUBCUT Q24H KRISTY Furosemide (Lasix) 80 mg PO DAILY [facility] Sodium Chloride (Sodium Chloride 0.45%) 1,000 mls @ 100 mls/hr IV ASDIRECTED KRISTY Non-Formulary Medication (Citalopram Hydrobromide [Celexa]) 20 mg PO DAILY KRISTY Non-Formulary Medication (Insulin Lispro Protamin/Lispro [Humalog Mix 75-25 Kwikpen]) 20 units SQ ASDIRECTED KRISTY Non-Formulary Medication (Insulin Lispro Protamin/Lispro [Humalog Mix 75-25 Kwikpen]) 40 units SQ ACBREAKFAST [facility] Ondansetron HCl (Zofran) 4 mg IV Q6H PRN PRN Reason: Nausea/Vomiting Pantoprazole Sodium (Protonix Iv) 40 mg IVPUSH Q24H KRISTY Simvastatin (Zocor) 20 mg PO DAILY ONE Stop: 03/24/19 08:01 Temazepam (Restoril) 15 mg PO BEDTIME PRN PRN Reason: Sleep Labs: Laboratory Tests 03/23/19 03/23/19 03/23/19 Range/Units 16:29 16:29 16:29 WBC 12.3 H (5.0-10.0) 10^3/uL RBC 4.06 L (4.50-6.00) 10^6/uL Hgb 11.9 L (14.0-18.0) g/dL Hct 37.0 L (40.0-54.0) % MCV 91.1 (82.0-94.0) fL MCH 29.3 (27.0-32.0) pg MCHC 32.2 L (33.0-38.0) g/dL RDW Coeff of Adrian 14.5 (11.0-15.0) % Plt Count 409 H (150-400) 10^3/uL Neut % (Auto) 72.8 (35-85) % Lymph % (Auto) 10.3 (10-55) % [place] % (Auto) 13.6 (0-16) % Eos % (Auto) 3.0 (0-5) % Baso % (Auto) 0.3 (0-3) % Neut # (Auto) 8.97 H (1.80-7.00) 10^3/uL Lymph # (Auto) 1.27 (1.00-4.80) 10^3/uL [place] # (Auto) 1.67 H (0.00-0.80) 10^3/uL Eos # (Auto) 0.37 (0.00-0.45) 10^3/uL Baso # (Auto) 0.04 10^3/uL PT 11.7 (9.7-12.3) SEC INR 1.14 (0.92-1.18) Sodium 138 (136-145) mEq/L Potassium 4.2 (3.5-5.0) mEq/L Chloride 102 (98-106) mEq/L Carbon Dioxide 22 (21-32) mmol/L BUN 35 H (7-18) mg/dL Creatinine 2.3 H (0.7-1.3) mg/dL Est Cr Clr Drug Dosing 26.71 mL/min Estimated GFR (MDRD) 27 L (>=60) mL/min Glucose 117 H (75-99) mg/dL Calcium 8.6 (8.4-10.1) mg/dL Magnesium 1.8 (1.8-2.4) mg/dL Total Bilirubin 0.3 (0.0-1.0) mg/dL AST 16 (15-37) U/L ALT 14 (12-78) U/L Alkaline Phosphatase 123 H (46-116) U/L Troponin I 0.035 (0.00-0.06) ng/mL NT-Pro-B Natriuret Pep 388 (0-1000) pg/mL Total Protein 7.3 (6.4-8.2) g/dL Albumin 3.2 L (3.4-5.0) g/dL Meds: Medications Generic Name Dose Route Start Last Admin Trade Name Freq PRN Reason Stop Dose Admin Acetaminophen 650 mg 03/23/19 17:55 Tylenol PO Q4H PRN Pain (Mild 1-3)/fever Allopurinol 150 mg 03/24/19 08:00 Zyloprim PO DAILY [facility] Amlodipine Besylate 10 mg 03/24/19 08:00 Norvasc PO DAILY [facility] Clopidogrel Bisulfate 75 mg 03/24/19 08:00 Plavix PO DAILY [facility] Docusate Sodium 100 mg 03/23/19 17:55 Colace PO BID PRN Constipation Enalapril Maleate 5 mg 03/24/19 08:00 Vasotec PO DAILY [facility] Enoxaparin Sodium 30 mg 03/23/19 17:55 Lovenox SUBCUT Q24H [facility] Furosemide 80 mg 03/24/19 08:00 Lasix PO DAILY [facility] Sodium Chloride 1,000 mls @ 100 mls/hr 03/23/19 17:55 Sodium Chloride 0.45% IV ASDIRECTED [facility] Non-Formulary Medication 20 mg 03/24/19 08:00 Citalopram Hydrobromide [Celexa] PO DAILY KRISTY Non-Formulary Medication 20 units 03/23/19 17:55 Insulin Lispro Protamin/Lispro [Humalog Mix 75-25 Kwikpen] SQ ASDIRECTED KRISTY Non-Formulary Medication 40 units 03/24/19 07:00 Insulin Lispro Protamin/Lispro [Humalog Mix 75-25 Kwikpen] SQ ACBREAKFAST [facility] Ondansetron HCl 4 mg 03/23/19 17:55 Zofran IV Q6H PRN Nausea/Vomiting Pantoprazole Sodium 40 mg 03/24/19 07:30 Protonix Iv IVPUSH Q24H [facility] Simvastatin 20 mg 03/24/19 08:00 Zocor PO 03/24/19 08:01 DAILY ONE Temazepam 15 mg 03/23/19 17:55 Restoril PO BEDTIME PRN Sleep Discontinued Medications Generic Name Dose Route Start Last Admin Trade Name Olivia PRN Reason Stop Dose Admin Lactated Ringer's 500 mls @ 500 mls/hr 03/23/19 16:45 03/23/19 16:52 Ringers, Lactated IV 500 mls/hr ASDIRECTED KRISTY Administration Lactated Ringer's Confirm 03/23/19 16:34 03/23/19 16:52 Ringers, Lactated Administered 03/23/19 16:35 Not Given Dose 1,000 mls @ as directed .ROUTE .STK-MED ONE Ondansetron HCl Confirm 03/23/19 16:01 03/23/19 16:24 Zofran Administered 03/23/19 16:02 Not Given Dose 4 mg .ROUTE .STK-MED ONE Ondansetron HCl 4 mg 03/23/19 16:23 03/23/19 16:24 Zofran IVPUSH 03/23/19 16:24 4 mg Q6H ONE Administration Pantoprazole Sodium 40 mg 03/23/19 17:06 03/23/19 17:13 Protonix Iv IVPUSH 03/23/19 17:07 40 mg STAT STA Administration - Re-Assessments/Exams Free Text/Narrative Re-Assessment/Exam: Discussed labs, EKG, and CXR results with patient and daughter. Approximately 10 minutes after my exam patient reports no chest pain or abdominal pain. He reports he is feeling better. Did receive Zofran. He is less anxious and no longer crying. Will admit to observation with telemetry for repeat labs. Creatinine up to 2.3. Baseline 1.8-2.0. Troponin elevated to 0.035, suspect from CKD. No EKG changes. WBC 12.3. Will start gentle hydration, IV Zofran as needed, and IV protonix. Repeat labs in am. Patient and daughter agreeable. Departure - Departure Time of Disposition: 17:35 Disposition: Refer to Observation Condition: Good Clinical Impression: Gastritis Qualifiers: Gastritis type: unspecified gastritis Chronicity: acute Gastritis bleeding: without bleeding Qualified Code(s): K29.00 - Acute gastritis without bleeding CKD (chronic kidney disease) Qualifiers: Chronic kidney disease stage: unspecified stage Qualified Code(s): N18.9 - Chronic kidney disease, unspecified - Discharge Information *PRESCRIPTION DRUG MONITORING PROGRAM REVIEWED*: Not Applicable *COPY OF PRESCRIPTION DRUG MONITORING REPORT IN PATIENT ALLISON: Not Applicable - Problem List & Annotations (1) Gastritis SNOMED Code(s): 6169617 Code(s): K29.70 - GASTRITIS, UNSPECIFIED, WITHOUT BLEEDING Status: Acute Current Visit: Yes Qualifiers: Gastritis type: unspecified gastritis Chronicity: acute Gastritis bleeding: without bleeding Qualified Code(s): K29.00 - Acute gastritis without bleeding (2) CKD (chronic kidney disease) SNOMED Code(s): 725415273 Code(s): N18.9 - CHRONIC KIDNEY DISEASE, UNSPECIFIED Status: Acute Current Visit: Yes Qualifiers: Chronic kidney disease stage: unspecified stage Qualified Code(s): N18.9 - Chronic kidney disease, unspecified - Problem List Review Problem List Initiated/Reviewed/Updated: Yes - My Orders Last 24 Hours: My Active Orders 03/23/19 16:21 Chest 1V Frontal [CR] Stat 03/23/19 16:42 UA RFX MARCIN AND CULT IF INDIC [URIN] Stat 03/23/19 17:25 Resuscitation Status Routine 03/23/19 17:55 Patient Status [ADT] Routine Cardiac Monitoring [RC] 0800,2000 Intake and Output [RC] 0600,1800 Oxygen Therapy [RC] .PRN Pulse Oximetry [RC] .PRN Up ad Charlene [RC] .PRN VTE/DVT Education [RC] .PRN Vital Signs [RC] 0800,1200,1600,2000,0000,0400 Acetaminophen [Tylenol] 650 mg PO Q4H PRN Docusate Sodium [Colace] 100 mg PO BID PRN Enoxaparin [Lovenox] 30 mg SUBCUT Q24H Insulin Lispro Protamin/Lispro [Humalog Mix 75-25 Kwikpen] 20 units SQ ASDIRECTED Ondansetron [Zofran] 4 mg IV Q6H PRN Sodium Chloride 0.45% 1,000 ml IV ASDIRECTED Temazepam [Restoril] 15 mg PO BEDTIME PRN 03/23/19 Dinner Clear Liquid Diet [DIET] 03/24/19 05:11 BASIC METABOLIC PANEL,BMP [CHEM] AM C-REACTIVE PROTEIN [CHEM] AM CBC WITH AUTO DIFF [HEME] AM TROPONIN I [CHEM] AM 03/24/19 07:00 Insulin Lispro Protamin/Lispro [Humalog Mix 75-25 Kwikpen] 40 units SQ ACBREAKFAST 03/24/19 07:30 Pantoprazole [ProTONIX IV] 40 mg IVPUSH Q24H 03/24/19 08:00 Allopurinol [Zyloprim] 150 mg PO DAILY Citalopram Hydrobromide [Celexa] 20 mg PO DAILY Clopidogrel [Plavix] 75 mg PO DAILY Enalapril [Vasotec] 5 mg PO DAILY Furosemide [Lasix] 80 mg PO DAILY Simvastatin [Zocor] 20 mg PO DAILY ONE amLODIPine [Norvasc] 10 mg PO DAILY - Assessment/Plan Admission H&P: Please use this note as an admission H&P Last 24 Hours: My Active Orders 03/23/19 16:21 Chest 1V Frontal [CR] Stat 03/23/19 16:42 UA RFX MARCIN AND CULT IF INDIC [URIN] Stat 03/23/19 17:25 Resuscitation Status Routine 03/23/19 17:55 Patient Status [ADT] Routine Cardiac Monitoring [RC] 0800,2000 Intake and Output [RC] 0600,1800 Oxygen Therapy [RC] .PRN Pulse Oximetry [RC] .PRN Up ad Charlene [RC] .PRN VTE/DVT Education [RC] .PRN Vital Signs [RC] 0800,1200,1600,2000,0000,0400 Acetaminophen [Tylenol] 650 mg PO Q4H PRN Docusate Sodium [Colace] 100 mg PO BID PRN Enoxaparin [Lovenox] 30 mg SUBCUT Q24H Insulin Lispro Protamin/Lispro [Humalog Mix 75-25 Kwikpen] 20 units SQ ASDIRECTED Ondansetron [Zofran] 4 mg IV Q6H PRN Sodium Chloride 0.45% 1,000 ml IV ASDIRECTED Temazepam [Restoril] 15 mg PO BEDTIME PRN 03/23/19 Dinner Clear Liquid Diet [DIET] 03/24/19 05:11 BASIC METABOLIC PANEL,BMP [CHEM] AM C-REACTIVE PROTEIN [CHEM] AM CBC WITH AUTO DIFF [HEME] AM TROPONIN I [CHEM] AM 03/24/19 07:00 Insulin Lispro Protamin/Lispro [Humalog Mix 75-25 Kwikpen] 40 units SQ ACBREAKFAST 03/24/19 07:30 Pantoprazole [ProTONIX IV] 40 mg IVPUSH Q24H 03/24/19 08:00 Allopurinol [Zyloprim] 150 mg PO DAILY Citalopram Hydrobromide [Celexa] 20 mg PO DAILY Clopidogrel [Plavix] 75 mg PO DAILY Enalapril [Vasotec] 5 mg PO DAILY Furosemide [Lasix] 80 mg PO DAILY Simvastatin [Zocor] 20 mg PO DAILY ONE amLODIPine [Norvasc] 10 mg PO DAILY Assessment:: Gastritis Chronic Kidney Disease Plan: Admit to observation with telemetry. Will start gentle IV hydration through night. IV Zofran as needed. Start IV protonix. Will repeat labs in am. Patient transferred to floor in satisfactory condition.
[2019-03-23] MEDS ORDERED: [UNRECOGNIZED DRUG - OTHER] SQ SCH (17:55)
[2019-03-23] MEDS ORDERED: LISPRO SQ SCH (17:55)
[2019-03-23] MEDS ORDERED: Ondansetron 4 MG/2 ML SDV IV PRN (17:55)
[2019-03-23] MEDS ORDERED: Temazepam 15 MG Cap PO PRN (17:55)
[2019-03-23] MEDS ORDERED: INSULIN LISPRO PROTAMIN SQ SCH (17:55)
[2019-03-23] MEDS ORDERED: Docusate Sodium 100 MG Cap PO PRN (17:55)
[2019-03-23] MEDS ORDERED: Acetaminophen 325 MG Tab PO PRN (17:55)
[2019-03-23] MEDS: Enoxaparin 30 MG/0.3 ML Syringe SUBCUT SCH (18:41)
[2019-03-23] MEDS: Sodium Chloride 0.45% 1,000 ML IV SCH (19:34)
[2019-03-24] MEDS: Sodium Chloride 0.45% 1,000 ML IV SCH (05:04)
[2019-03-24] MEDS ORDERED: INSULIN LISPRO PROTAMIN SQ SCH ×3 (07:00→17:30)
[2019-03-24] MEDS ORDERED: [UNRECOGNIZED DRUG - OTHER] SQ SCH ×3 (07:00→17:30)
[2019-03-24] MEDS ORDERED: LISPRO SQ SCH ×3 (07:00→17:30)
[2019-03-24] MEDS ORDERED: Furosemide 40 MG Tab PO SCH (08:00)
[2019-03-24] MEDS ORDERED: Simvastatin 20 MG Tab**OWN MED PO ONE (08:00)
[2019-03-24] MEDS ORDERED: amLODIPine 10 MG Tab PO SCH (08:00)
[2019-03-24] MEDS ORDERED: Enalapril 5 MG Tab PO SCH (08:00)
[2019-03-24] MEDS ORDERED: Clopidogrel 75 MG Tab PO SCH (08:00)
[2019-03-24] MEDS ORDERED: Simvastatin 20 MG Tab PO ONE (08:00)
[2019-03-24] MEDS ORDERED: Insulin NPH HUM/REG Insulin HM 100 UNIT/ML 3 ML Vial SQ ONE (08:09)
[2019-03-24] MEDS: amLODIPine 10 MG Tab**OWN MED PO SCH (08:25)
[2019-03-24] MEDS: FUROSEMIDE 80 MG PO SCH (08:25)
[2019-03-24] MEDS: Pantoprazole 40 MG Vial IVPUSH SCH (08:25)
[2019-03-24] MEDS: Clopidogrel 75 MG Tab**OWN MED PO SCH (08:26)
[2019-03-24] MEDS: ENALAPRIL 5 MG PO SCH (08:26)
[2019-03-24] MEDS: Citalopram 10 MG Tab PO SCH (08:27)
[2019-03-24] MEDS: Allopurinol 300 MG Tab PO SCH (08:27)
[2019-03-24] MEDS: cefTRIAXone 1 GM Vial IVPUSH SCH (09:10)
--- NOTE | 2019-03-24 13:40 | PCM.PN ---
- General Info Date of Service: 03/24/19 Admission Dx/Problem (Free Text): Gastroenteritis Functional Status: Reports: Pain Controlled, Tolerating Diet, Ambulating - Review of Systems General: Reports: Weakness, Fatigue HEENT: Reports: No Symptoms Pulmonary: Denies: Shortness of Breath, Cough Cardiovascular: Denies: Chest Pain, Lightheadedness Gastrointestinal: Denies: Abdominal Pain, Nausea, Vomiting Genitourinary: Reports: Incontinence, Hematuria Musculoskeletal: Reports: No Symptoms Skin: Reports: No Symptoms Neurological: Reports: Dizziness, Weakness - Patient Data Vitals - Most Recent: Last Vital Signs Temp 97.9 F 03/24/19 12:00 Pulse 59 L 03/24/19 12:00 Resp 18 03/24/19 12:00 BP 151/69 H 03/24/19 12:00 Pulse Ox 97 03/24/19 12:00 Weight - Most Recent: 227 lb 12.8 oz I&O - Last 24 Hours: Intake & Output 03/23/19 03/24/19 03/24/19 22:59 06:59 14:59 Intake Total 1800 950 Output Total 400 Balance 1800 550 Lab Results Last 24 Hours: Laboratory Results - last 24 hr 03/23/19 03/23/19 03/23/19 Range/Units 16:29 16:29 16:29 WBC 12.3 H (5.0-10.0) 10^3/uL RBC 4.06 L (4.50-6.00) 10^6/uL Hgb 11.9 L (14.0-18.0) g/dL Hct 37.0 L (40.0-54.0) % MCV 91.1 (82.0-94.0) fL MCH 29.3 (27.0-32.0) pg MCHC 32.2 L (33.0-38.0) g/dL RDW Coeff of Adrian 14.5 (11.0-15.0) % Plt Count 409 H (150-400) 10^3/uL Neut % (Auto) 72.8 (35-85) % Lymph % (Auto) 10.3 (10-55) % Frederick % (Auto) 13.6 (0-16) % Eos % (Auto) 3.0 (0-5) % Baso % (Auto) 0.3 (0-3) % Neut # (Auto) 8.97 H (1.80-7.00) 10^3/uL Lymph # (Auto) 1.27 (1.00-4.80) 10^3/uL Frederick # (Auto) 1.67 H (0.00-0.80) 10^3/uL Eos # (Auto) 0.37 (0.00-0.45) 10^3/uL Baso # (Auto) 0.04 10^3/uL PT 11.7 (9.7-12.3) SEC INR 1.14 (0.92-1.18) Sodium 138 (136-145) mEq/L Potassium 4.2 (3.5-5.0) mEq/L Chloride 102 (98-106) mEq/L Carbon Dioxide 22 (21-32) mmol/L BUN 35 H (7-18) mg/dL Creatinine 2.3 H (0.7-1.3) mg/dL Est Cr Clr Drug Dosing 26.71 mL/min Estimated GFR (MDRD) 27 L (>=60) mL/min Glucose 117 H (75-99) mg/dL POC Glucose (75-105) mg/dl Calcium 8.6 (8.4-10.1) mg/dL Magnesium 1.8 (1.8-2.4) mg/dL Total Bilirubin 0.3 (0.0-1.0) mg/dL AST 16 (15-37) U/L ALT 14 (12-78) U/L Alkaline Phosphatase 123 H (46-116) U/L Troponin I 0.035 (0.00-0.06) ng/mL C-Reactive Protein (0.2-0.8) mg/dL NT-Pro-B Natriuret Pep 388 (0-1000) pg/mL Total Protein 7.3 (6.4-8.2) g/dL Albumin 3.2 L (3.4-5.0) g/dL Urine Color (YELLOW) Urine Appearance (CLEAR) Urine pH (4.5-8.0) Ur Specific [place] (1.003-1.020) Urine Protein (NEGATIVE) mg/dL Urine Glucose (UA) (NEGATIVE) mg/dL Urine Ketones (NEGATIVE) mg/dL Urine Occult Blood (NEGATIVE) Urine Nitrite (NEGATIVE) Urine Bilirubin (NEGATIVE) Urine Urobilinogen (0.2-1.0) EU/dL Ur Leukocyte Esterase (NEGATIVE) Urine RBC (0-5) /HPF Urine WBC (0-5) /HPF Ur Epithelial Cells (NOT SEEN) /HPF Hyaline Casts (NOT SEEN) /LPF 03/23/19 03/24/19 03/24/19 Range/Units 23:39 06:50 06:50 WBC 6.8 (5.0-10.0) 10^3/uL RBC 3.37 L (4.50-6.00) 10^6/uL Hgb 9.9 L (14.0-18.0) g/dL Hct 31.1 L (40.0-54.0) % MCV 92.3 (82.0-94.0) fL MCH 29.4 (27.0-32.0) pg MCHC 31.8 L (33.0-38.0) g/dL RDW Coeff of Adrian 14.2 (11.0-15.0) % Plt Count 294 (150-400) 10^3/uL Neut % (Auto) 66.6 (35-85) % Lymph % (Auto) 12.7 (10-55) % Frederick % (Auto) 15.2 (0-16) % Eos % (Auto) 5.2 H (0-5) % Baso % (Auto) 0.3 (0-3) % Neut # (Auto) 4.51 (1.80-7.00) 10^3/uL Lymph # (Auto) 0.86 L (1.00-4.80) 10^3/uL Frederick # (Auto) 1.03 H (0.00-0.80) 10^3/uL Eos # (Auto) 0.35 (0.00-0.45) 10^3/uL Baso # (Auto) 0.02 10^3/uL PT (9.7-12.3) SEC INR (0.92-1.18) Sodium 139 (136-145) mEq/L Potassium 4.5 (3.5-5.0) mEq/L Chloride 106 (98-106) mEq/L Carbon Dioxide 27 (21-32) mmol/L BUN 33 H (7-18) mg/dL Creatinine 1.9 H (0.7-1.3) mg/dL Est Cr Clr Drug Dosing 32.33 mL/min Estimated GFR (MDRD) 34 L (>=60) mL/min Glucose 132 H (75-99) mg/dL POC Glucose (75-105) mg/dl Calcium 7.4 L (8.4-10.1) mg/dL Magnesium (1.8-2.4) mg/dL Total Bilirubin (0.0-1.0) mg/dL AST (15-37) U/L ALT (12-78) U/L Alkaline Phosphatase (46-116) U/L Troponin I 0.032 (0.00-0.06) ng/mL C-Reactive Protein 0.5 (0.2-0.8) mg/dL NT-Pro-B Natriuret Pep (0-1000) pg/mL Total Protein (6.4-8.2) g/dL Albumin (3.4-5.0) g/dL Urine Color Straw (YELLOW) Urine Appearance Cloudy (CLEAR) Urine pH 6.0 (4.5-8.0) Ur Specific [place] 1.015 (1.003-1.020) Urine Protein 30 H (NEGATIVE) mg/dL Urine Glucose (UA) Negative (NEGATIVE) mg/dL Urine Ketones Negative (NEGATIVE) mg/dL Urine Occult Blood Large H (NEGATIVE) Urine Nitrite Negative (NEGATIVE) Urine Bilirubin Negative (NEGATIVE) Urine Urobilinogen 0.2 (0.2-1.0) EU/dL Ur Leukocyte Esterase Small H (NEGATIVE) Urine RBC 75-100 H (0-5) /HPF Urine WBC 5-10 H (0-5) /HPF Ur Epithelial Cells Few H (NOT SEEN) /HPF Hyaline Casts Few H (NOT SEEN) /LPF 03/24/19 Range/Units 07:38 WBC (5.0-10.0) 10^3/uL RBC (4.50-6.00) 10^6/uL Hgb (14.0-18.0) g/dL Hct (40.0-54.0) % MCV (82.0-94.0) fL MCH (27.0-32.0) pg MCHC (33.0-38.0) g/dL RDW Coeff of Adrian (11.0-15.0) % Plt Count (150-400) 10^3/uL Neut % (Auto) (35-85) % Lymph % (Auto) (10-55) % Frederick % (Auto) (0-16) % Eos % (Auto) (0-5) % Baso % (Auto) (0-3) % Neut # (Auto) (1.80-7.00) 10^3/uL Lymph # (Auto) (1.00-4.80) 10^3/uL Frederick # (Auto) (0.00-0.80) 10^3/uL Eos # (Auto) (0.00-0.45) 10^3/uL Baso # (Auto) 10^3/uL PT (9.7-12.3) SEC INR (0.92-1.18) Sodium (136-145) mEq/L Potassium (3.5-5.0) mEq/L Chloride (98-106) mEq/L Carbon Dioxide (21-32) mmol/L BUN (7-18) mg/dL Creatinine (0.7-1.3) mg/dL Est Cr Clr Drug Dosing mL/min Estimated GFR (MDRD) (>=60) mL/min Glucose (75-99) mg/dL POC Glucose 130 H (75-105) mg/dl Calcium (8.4-10.1) mg/dL Magnesium (1.8-2.4) mg/dL Total Bilirubin (0.0-1.0) mg/dL AST (15-37) U/L ALT (12-78) U/L Alkaline Phosphatase (46-116) U/L Troponin I (0.00-0.06) ng/mL C-Reactive Protein (0.2-0.8) mg/dL NT-Pro-B Natriuret Pep (0-1000) pg/mL Total Protein (6.4-8.2) g/dL Albumin (3.4-5.0) g/dL Urine Color (YELLOW) Urine Appearance (CLEAR) Urine pH (4.5-8.0) Ur Specific [place] (1.003-1.020) Urine Protein (NEGATIVE) mg/dL Urine Glucose (UA) (NEGATIVE) mg/dL Urine Ketones (NEGATIVE) mg/dL Urine Occult Blood (NEGATIVE) Urine Nitrite (NEGATIVE) Urine Bilirubin (NEGATIVE) Urine Urobilinogen (0.2-1.0) EU/dL Ur Leukocyte Esterase (NEGATIVE) Urine RBC (0-5) /HPF Urine WBC (0-5) /HPF Ur Epithelial Cells (NOT SEEN) /HPF Hyaline Casts (NOT SEEN) /LPF Med Orders - Current: Current Medications Acetaminophen (Tylenol) 650 mg PO Q4H PRN PRN Reason: Pain (Mild 1-3)/fever Allopurinol (Zyloprim) 150 mg PO DAILY [facility] Last Admin: 03/24/19 08:27 Dose: 150 mg Amlodipine Besylate (Norvasc) 10 mg PO DAILY [facility] Last Admin: 03/24/19 08:25 Dose: 10 mg Ceftriaxone Sodium (Rocephin) 1 gm IVPUSH Q24H [facility] Last Admin: 03/24/19 09:10 Dose: 1 gm Citalopram Hydrobromide (Celexa) 20 mg PO DAILY [facility] Last Admin: 03/24/19 08:27 Dose: 20 mg Clopidogrel Bisulfate (Plavix) 75 mg PO DAILY [facility] Last Admin: 03/24/19 08:26 Dose: 75 mg Docusate Sodium (Colace) 100 mg PO BID PRN PRN Reason: Constipation Enalapril Maleate (Vasotec) 5 mg PO DAILY [facility] Last Admin: 03/24/19 08:26 Dose: 5 mg Enoxaparin Sodium (Lovenox) 30 mg SUBCUT Q24H [facility] Last Admin: 03/23/19 18:41 Dose: 30 mg Furosemide (Lasix) 80 mg PO DAILY [facility] Last Admin: 03/24/19 08:25 Dose: 80 mg Non-Formulary Medication (Insulin Lispro Protamin/Lispro [Humalog Mix 75-25 Kwikpen]) 20 units SQ 1730 [facility] Non-Formulary Medication (Insulin Lispro Protamin/Lispro [Humalog Mix 75-25 Kwikpen]) 40 units SQ 0730 [facility] Last Admin: 03/24/19 08:29 Dose: Not Given Ondansetron HCl (Zofran) 4 mg IV Q6H PRN PRN Reason: Nausea/Vomiting Pantoprazole Sodium (Protonix Iv) 40 mg IVPUSH Q24H [facility] Last Admin: 03/24/19 08:25 Dose: 40 mg Simvastatin (Zocor) 20 mg PO DAILY [facility] Temazepam (Restoril) 15 mg PO BEDTIME PRN PRN Reason: Sleep Discontinued Medications Amlodipine Besylate (Norvasc) 10 mg PO DAILY [facility] Clopidogrel Bisulfate (Plavix) 75 mg PO DAILY [facility] Enalapril Maleate (Vasotec) 5 mg PO DAILY [facility] Furosemide (Lasix) 80 mg PO DAILY [facility] Lactated Ringer's (Ringers, Lactated) 500 mls @ 500 mls/hr IV ASDIRECTED [facility] Last Infusion: 03/23/19 18:34 Dose: Infused Lactated Ringer's (Ringers, Lactated) Confirm Administered Dose 1,000 mls @ as directed .ROUTE .STK-MED ONE Stop: 03/23/19 16:35 Last Admin: 03/23/19 16:52 Dose: Not Given Sodium Chloride (Sodium Chloride 0.45%) 1,000 mls @ 100 mls/hr IV ASDIRECTED [facility] Last Admin: 03/24/19 05:04 Dose: 100 mls/hr Insulin NPH Beef/Pork (Humulin 70-30) 40 unit SQ ONETIME ONE Stop: 03/24/19 08:10 Last Admin: 03/24/19 08:28 Dose: 40 unit Non-Formulary Medication (Insulin Lispro Protamin/Lispro [Humalog Mix 75-25 Kwikpen]) 20 units SQ ASDIRECTED [facility] Non-Formulary Medication (Insulin Lispro Protamin/Lispro [Humalog Mix 75-25 Kwikpen]) 40 units SQ ACBREAKFAST [facility] Ondansetron HCl (Zofran) Confirm Administered Dose 4 mg .ROUTE .STK-MED ONE Stop: 03/23/19 16:02 Last Admin: 03/23/19 16:24 Dose: Not Given Ondansetron HCl (Zofran) 4 mg IVPUSH Q6H ONE Stop: 03/23/19 16:24 Last Admin: 03/23/19 16:24 Dose: 4 mg Pantoprazole Sodium (Protonix Iv) 40 mg IVPUSH STAT STA Stop: 03/23/19 17:07 Last Admin: 03/23/19 17:13 Dose: 40 mg Simvastatin (Zocor) 20 mg PO DAILY ONE Stop: 03/24/19 08:01 Simvastatin (Zocor) 20 mg PO DAILY ONE Stop: 03/24/19 08:01 Last Admin: 03/24/19 08:27 Dose: 20 mg - Exam General: Alert, Oriented HEENT: Mucous Membr. Moist/Gering Neck: Supple Lungs: Clear to Auscultation, Normal Respiratory Effort Cardiovascular: Regular Rate, Regular Rhythm GI/Abdominal Exam: Normal Bowel Sounds, Soft, Non-Tender Extremities: Normal Inspection, No Pedal Edema Skin: Warm, Dry Neurological: No New Focal Deficit - Problem List & Annotations (1) Gastroenteritis SNOMED Code(s): 22044405 Code(s): K52.9 - NONINFECTIVE GASTROENTERITIS AND COLITIS, UNSPECIFIED Status: Acute Priority: High Current Visit: Yes (2) Hematuria SNOMED Code(s): 73955210 Code(s): R31.9 - HEMATURIA, UNSPECIFIED Status: Acute Priority: High Current Visit: Yes Qualifiers: Hematuria type: gross Qualified Code(s): R31.0 - Gross hematuria (3) Dizziness SNOMED Code(s): 175972627, 824592443 Code(s): R42 - DIZZINESS AND GIDDINESS Status: Acute Priority: High Current Visit: Yes - Problem List Review Problem List Initiated/Reviewed/Updated: Yes - My Orders Last 24 Hours: My Active Orders 03/24/19 08:30 cefTRIAXone [Rocephin] 1 gm IVPUSH Q24H 03/24/19 08:39 Renal Comp [US] Routine 03/25/19 08:00 Simvastatin [Zocor] 20 mg PO DAILY - Assessment Assessment:: Gastroenteritia Dizziness Hematuria - Plan Plan:: Patient admits to still feeling unsteady on his feet, ambulating with walker. Feels dizzy at times. No further nausea. Is eating breakfast, tolerating well. Does report urgency and frequency with urination. Was incontinent this am and large amount of blood was noted. UA received, small amount of leukocytes and WBCs with large amount of blood. WBC is improved today, down to 6.8. CRP is negative. Will obtain renal ultrasound today. Start Rocephin for coverage. Ambulate. Likely discharge home tomorrow if remains stable.
[2019-03-24] MEDS ORDERED: Insulin NPH HUM/REG Insulin HM 100 UNIT/ML 3 ML Vial SQ SCH (17:30)
[2019-03-24] MEDS: Enoxaparin 30 MG/0.3 ML Syringe SUBCUT SCH (17:41)
[2019-03-25] MEDS ORDERED: Insulin NPH HUM/REG Insulin HM 100 UNIT/ML 3 ML Vial SQ ONE (08:00)
[2019-03-25] MEDS ORDERED: Simvastatin 20 MG Tab**OWN MED PO SCH (08:00)
[2019-03-25] MEDS: Allopurinol 300 MG Tab PO SCH (08:06)
[2019-03-25] MEDS: Pantoprazole 40 MG Vial IVPUSH SCH (08:07)
[2019-03-25] MEDS: Citalopram 10 MG Tab PO SCH (08:07)
[2019-03-25] MEDS: ENALAPRIL 5 MG PO SCH (08:08)
[2019-03-25] MEDS: amLODIPine 10 MG Tab**OWN MED PO SCH (08:08)
[2019-03-25] MEDS: FUROSEMIDE 80 MG PO SCH (08:08)
[2019-03-25] MEDS: Clopidogrel 75 MG Tab**OWN MED PO SCH (08:09)
[2019-03-25] MEDS: cefTRIAXone 1 GM Vial IVPUSH SCH (08:09)
[2019-03-25 08:10] VITALS: BP 143/75
[2019-03-25 08:19] VITALS: PULSE 76
--- NOTE | 2019-03-25 08:30 | PCM.DCSUM1 ---
Discharge Summary - Hospital Course HPI Initial Comments: This patient is an 83 year old patient that was admitted for UTI, gastroenteritis. The patient reports that while here yesterday he had some gross hematuria with US. He reports that since yesterday afternoon the hematuria has completely resolved. RN reports no gross hematuria since yesterday afternoon. The patient reports that he feels great and full of energy. He reports he has been walking all around the halls without difficulty. The patient denies nausea, vomiting, diarrhea, abd pain, or any pain complaints. The patient reports that he feels much better today and is ready to go home. RN informed me that the patient daughter wanted him placed in assisted living. However, patient is alert and oriented and completely able to make his own decisions. The patient reports that he does not feel he is ready for that level of care yet, I would agree after talking with him and his ability to self care. Sisi WATERMAN spoke with the patient yesterday about assisted living, etc, but again patient declines this service. Modified Baca Scale: No Symptoms at All Modified Baca Scale Score: 0 - Discharge Data Discharge Date: 03/25/19 Discharge Disposition: Home, Self-Care 01 Condition: Good - Referral to Home Health Primary Care Physician: Ishan Maradiaga MD - Patient Summary/Data Consults: Dr. Maradiaga early this week Hospital Course: Patient to be discharged home on abx for UTI. Followup with PCP early next week. - Patient Instructions Diet: Usual Diet as Tolerated Activity: As Tolerated Showering/Bathing: May Shower Notify Provider of: Fever, Swelling and Redness, Nausea and/or Vomiting Other/Special Instructions: Followup with PCP early next week. Return as needed - Discharge Plan *PRESCRIPTION DRUG MONITORING PROGRAM REVIEWED*: Not Applicable *COPY OF PRESCRIPTION DRUG MONITORING REPORT IN PATIENT ALLISON: Not Applicable Prescriptions/Med Rec: cephALEXin [Cephalexin] 500 mg PO QID 10 Days #40 tablet Home Medications: Home Meds Ascorbic Acid [Vitamin C] 1,000 mg PO DAILY 08/19/14 [History] Clopidogrel Bisulfate [Clopidogrel] 75 mg PO DAILY 08/19/14 [History] Enalapril Maleate 5 mg PO DAILY 08/19/14 [History] Furosemide 80 mg PO DAILY 08/19/14 [History] Simvastatin 20 mg PO BEDTIME 08/19/14 [History] Allopurinol [Zyloprim] 150 mg PO DAILY #0 08/21/14 [Rx] Citalopram Hydrobromide [Celexa] 20 mg PO DAILY #0 08/21/14 [Rx] Clindamycin Phosphate 1 applic TOP BID 01/22/19 [History] amLODIPine Besylate [Amlodipine Besylate] 10 mg PO DAILY 01/22/19 [History] Acetaminophen [Tylenol Extra Strength] 500 mg PO ASDIRECTED PRN 01/26/19 [ History] Cyanocobalamin (Vitamin B-12) [Cyanocobalamin Injection] 1 each INJECT ASDIRECTED 01/26/19 [History] Hydrocortisone [Hydrocortisone 1% Crm] 1 each TOP ASDIRECTED 01/26/19 [History] Insulin Lispro Protamin/Lispro [Humalog Mix 75-25 Kwikpen] 20 units SQ ASDIRECTED 01/26/19 [History] Insulin Lispro Protamin/Lispro [Humalog Mix 75-25 Kwikpen] 40 units SQ ACBREAKFAST 01/26/19 [History] diphenhydrAMINE HCl/Zinc Acet [Benadryl Itch Stopping Crm] 1 each TOP DAILY PRN 01/26/19 [History] cephALEXin [Cephalexin] 500 mg PO QID 10 Days #40 tablet 03/25/19 [Rx] Patient Handouts: Viral Gastroenteritis, Adult, Urinary Tract Infection, Adult Forms: ED Department Discharge Referrals: Ishan Maradiaga MD [Primary Care Provider] - - Discharge Summary/Plan Comment DC Time >30 min.: No Discharge Summary/Plan Comment: Followup with Dr. Maradiaga early this week Return to the ER for worsening of condition or any emergent concerns Medications as directed Cephalexin 500mg 1 pill four times a day for 10 days #40 no refill for Urinary Tract Infection - General Info Date of Service: 03/25/19 Functional Status: Reports: Pain Controlled, Tolerating Diet, Ambulating, Urinating - Review of Systems General: Reports: No Symptoms. Denies: Fever, Weakness, Fatigue, Malaise, Appetite HEENT: Reports: No Symptoms Pulmonary: Reports: No Symptoms Cardiovascular: Reports: No Symptoms Gastrointestinal: Reports: No Symptoms. Denies: Abdominal Pain, Diarrhea, Difficulty Swallowing, Nausea, Vomiting Genitourinary: Reports: No Symptoms. Denies: Dysuria, Frequency, Burning, Pain , Urgency, Incontinence, Hematuria, Retention, Flank Pain Musculoskeletal: Reports: No Symptoms Skin: Reports: No Symptoms Neurological: Reports: No Symptoms Psychiatric: Reports: No Symptoms - Patient Data Vitals - Most Recent: Last Vital Signs Temp 97.9 F 03/25/19 08:00 Pulse 76 03/25/19 08:00 Resp 16 03/25/19 08:00 BP 143/75 H 03/25/19 08:08 Pulse Ox 97 03/25/19 08:00 Weight - Most Recent: 227 lb 12.8 oz I&O - Last 24 hours: Intake & Output 03/24/19 03/25/19 03/25/19 22:59 06:59 14:59 Intake Total 1800 300 Output Total 400 1200 Balance 1400 -900 Lab Results - Last 24 hrs: Laboratory Results - last 24 hr 03/25/19 03/25/19 Range/Units 07:00 07:00 WBC 7.0 (5.0-10.0) 10^3/uL RBC 3.70 L (4.50-6.00) 10^6/uL Hgb 11.0 L (14.0-18.0) g/dL Hct 33.9 L (40.0-54.0) % MCV 91.6 (82.0-94.0) fL MCH 29.7 (27.0-32.0) pg MCHC 32.4 L (33.0-38.0) g/dL RDW Coeff of Adrian 14.3 (11.0-15.0) % Plt Count 330 (150-400) 10^3/uL Neut % (Auto) 64.3 (35-85) % Lymph % (Auto) 15.5 (10-55) % [place] % (Auto) 15.3 (0-16) % Eos % (Auto) 4.5 (0-5) % Baso % (Auto) 0.4 (0-3) % Neut # (Auto) 4.47 (1.80-7.00) 10^3/uL Lymph # (Auto) 1.08 (1.00-4.80) 10^3/uL [place] # (Auto) 1.06 H (0.00-0.80) 10^3/uL Eos # (Auto) 0.31 (0.00-0.45) 10^3/uL Baso # (Auto) 0.03 10^3/uL Sodium 140 (136-145) mEq/L Potassium 4.3 (3.5-5.0) mEq/L Chloride 104 (98-106) mEq/L Carbon Dioxide 26 (21-32) mmol/L BUN 32 H (7-18) mg/dL Creatinine 1.9 H (0.7-1.3) mg/dL Est Cr Clr Drug Dosing 32.33 mL/min Estimated GFR (MDRD) 34 L (>=60) mL/min Glucose 97 D (75-99) mg/dL Calcium 8.0 L (8.4-10.1) mg/dL MARCIN Results - Last 24 hrs: Microbiology 03/23/19 23:39 Urine Culture - Preliminary Urine, Voided Gram Negative Rods Med Orders - Current: Current Medications Acetaminophen (Tylenol) 650 mg PO Q4H PRN PRN Reason: Pain (Mild 1-3)/fever Allopurinol (Zyloprim) 150 mg PO DAILY [facility] Last Admin: 03/25/19 08:06 Dose: 150 mg Amlodipine Besylate (Norvasc) 10 mg PO DAILY [facility] Last Admin: 03/25/19 08:08 Dose: 10 mg Ceftriaxone Sodium (Rocephin) 1 gm IVPUSH Q24H [facility] Last Admin: 03/25/19 08:09 Dose: 1 gm Citalopram Hydrobromide (Celexa) 20 mg PO DAILY [facility] Last Admin: 03/25/19 08:07 Dose: 20 mg Clopidogrel Bisulfate (Plavix) 75 mg PO DAILY [facility] Last Admin: 03/25/19 08:09 Dose: 75 mg Docusate Sodium (Colace) 100 mg PO BID PRN PRN Reason: Constipation Enalapril Maleate (Vasotec) 5 mg PO DAILY [facility] Last Admin: 03/25/19 08:08 Dose: 5 mg Enoxaparin Sodium (Lovenox) 30 mg SUBCUT Q24H [facility] Last Admin: 03/24/19 17:41 Dose: 30 mg Furosemide (Lasix) 80 mg PO DAILY [facility] Last Admin: 03/25/19 08:08 Dose: 80 mg Insulin NPH Beef/Pork (Humulin 70-30) 20 unit SQ Q24H [facility] Last Admin: 03/24/19 17:41 Dose: 20 unit Ondansetron HCl (Zofran) 4 mg IV Q6H PRN PRN Reason: Nausea/Vomiting Pantoprazole Sodium (Protonix Iv) 40 mg IVPUSH Q24H [facility] Last Admin: 03/25/19 08:07 Dose: 40 mg Simvastatin (Zocor) 20 mg PO DAILY [facility] Last Admin: 03/25/19 08:07 Dose: 20 mg Temazepam (Restoril) 15 mg PO BEDTIME PRN PRN Reason: Sleep Discontinued Medications Amlodipine Besylate (Norvasc) 10 mg PO DAILY [facility] Clopidogrel Bisulfate (Plavix) 75 mg PO DAILY [facility] Enalapril Maleate (Vasotec) 5 mg PO DAILY [facility] Furosemide (Lasix) 80 mg PO DAILY [facility] Lactated Ringer's (Ringers, Lactated) 500 mls @ 500 mls/hr IV ASDIRECTED [facility] Last Infusion: 03/23/19 18:34 Dose: Infused Lactated Ringer's (Ringers, Lactated) Confirm Administered Dose 1,000 mls @ as directed .ROUTE .STK-MED ONE Stop: 03/23/19 16:35 Last Admin: 03/23/19 16:52 Dose: Not Given Sodium Chloride (Sodium Chloride 0.45%) 1,000 mls @ 100 mls/hr IV ASDIRECTED [facility] Last Admin: 03/24/19 05:04 Dose: 100 mls/hr Insulin NPH Beef/Pork (Humulin 70-30) 40 unit SQ ONETIME ONE Stop: 03/24/19 08:10 Last Admin: 03/24/19 08:28 Dose: 40 unit Insulin NPH Beef/Pork (Humulin 70-30) 40 unit SQ ONETIME ONE Stop: 03/25/19 08:01 Last Admin: 03/25/19 08:09 Dose: 40 unit Non-Formulary Medication (Insulin Lispro Protamin/Lispro [Humalog Mix 75-25 Kwikpen]) 20 units SQ ASDIRECTED [facility] Non-Formulary Medication (Insulin Lispro Protamin/Lispro [Humalog Mix 75-25 Kwikpen]) 40 units SQ ACBREAKFAST [facility] Non-Formulary Medication (Insulin Lispro Protamin/Lispro [Humalog Mix 75-25 Kwikpen]) 20 units SQ 1730 [facility] Non-Formulary Medication (Insulin Lispro Protamin/Lispro [Humalog Mix 75-25 Kwikpen]) 40 units SQ 0730 [facility] Last Admin: 03/24/19 08:29 Dose: Not Given Ondansetron HCl (Zofran) Confirm Administered Dose 4 mg .ROUTE .STK-MED ONE Stop: 03/23/19 16:02 Last Admin: 03/23/19 16:24 Dose: Not Given Ondansetron HCl (Zofran) 4 mg IVPUSH Q6H ONE Stop: 03/23/19 16:24 Last Admin: 03/23/19 16:24 Dose: 4 mg Pantoprazole Sodium (Protonix Iv) 40 mg IVPUSH STAT STA Stop: 03/23/19 17:07 Last Admin: 03/23/19 17:13 Dose: 40 mg Simvastatin (Zocor) 20 mg PO DAILY ONE Stop: 03/24/19 08:01 Simvastatin (Zocor) 20 mg PO DAILY ONE Stop: 03/24/19 08:01 Last Admin: 03/24/19 08:27 Dose: 20 mg - Exam General: Reports: Alert, Oriented, Cooperative, No Acute Distress Lungs: Reports: Clear to Auscultation, Normal Respiratory Effort Cardiovascular: Reports: Regular Rate, Regular Rhythm, No Murmurs GI/Abdominal Exam: Normal Bowel Sounds, Soft, Non-Tender, No Organomegaly, No Distention, No Abnormal Bruit, No Mass, Pelvis Stable Back Exam: Reports: Normal Inspection, Full Range of Motion Extremities: Normal Inspection, Normal Range of Motion, Non-Tender, No Pedal Edema, Normal Capillary Refill Skin: Reports: Warm, Dry, Intact Neurological: Reports: No New Focal Deficit, Normal Gait, Normal Speech Psy/Mental Status: Reports: Alert, Normal Affect, Normal Mood
== END 2019-03-25 11:13 | disposition home or self-care (01) ==
LOC: CC.ED 16:09 → CC.MS 17:25 → UNDOADMOB 17:44
PROVIDERS: ADMIT Nurse Practitioner Family; ATTEND Family Medicine
DX: K52.9 Noninfective gastroenteritis and colitis, unspecified (principal); N39.0 Urinary tract infection, site not specified; I12.9 Hypertensive chronic kidney disease with stage 1 through stage 4 chronic kidney disease, or unspecified chronic kidney disease; N18.9 Chronic kidney disease, unspecified; Z79.02 Long term (current) use of antithrombotics/antiplatelets; Z79.899 Other long term (current) drug therapy; Z79.4 Long term (current) use of insulin; Z91.018 Allergy to other foods; Z91.013 Allergy to seafood
CPT/HCPCS: 36415; 71045; 76770; 80048; 80053; 81001; 82962; 83735; 83880; 84484; 85025; 85610; 86140; 87086; 87088; 87186; 93005; 96361; 96372; 96374; 96375; 96376; 99285; A9270; C9113; G0378; J0696; J1650; J1815; J2405; J7030; J7120; 81003; 93010; 99217; 99220; 99225

== ENCOUNTER 2020-04-25 09:13 | Emergency (ER) | payer MEDICARE, OTHER ==
[2020-04-25 10:00] LABS: CHLORIDE,CL 101 mEq/L (98-106); SODIUM,NA 134 mEq/L (136-145)
[2020-04-25] MEDS: methylPREDNISolone Sodium Succinate 125 MG/2 ML SDV IVPUSH ONE (10:18)
[2020-04-25 10:37] LABS: PTT,PARTIAL THROMBOPLSTIN TIME 30.3 SEC (23.2-32.3)
--- NOTE | 2020-04-25 10:42 | EDM.PDOC ---
ED HPI GENERAL MEDICAL PROBLEM - General Chief Complaint: General Stated Complaint: L)sided pain and numbness Time Seen by Provider: 04/25/20 09:45 Source of Information: Reports: Patient, Shelter Records History Limitations: Reports: No Limitations - History of Present Illness INITIAL COMMENTS - FREE TEXT/NARRATIVE: Abdias is an 84 year old male who presents to the ER with concerns of left sided weakness and pain. Staff had noted this am when trying to put on his socks that he was unable to lift his leg as well as normal. They noted also after breakfast that he has swelling in his left cheek and gave him Benadryl. He is unsure of any new meds as of late. He notes pain from left shoulder all the way down to his left foot, pain is worse in the left hip. He had a recent test last week for Covid that was negative. No fevers. Denies chest pain, shortness of breath, abdominal pain. No nausea or vomiting. Gait was unsteady since symptoms occurred. Onset: Today, Sudden Duration: Hour(s): Location: Reports: Face, Upper Extremity, Left, Lower Extremity, Left Quality: Reports: Ache Severity: Mild Improves with: Reports: Rest Worsens with: Reports: Movement Associated Symptoms: Reports: Shortness of Breath (patient states has chronic shortness of breath). Denies: Confusion, Chest Pain, Cough, Loss of Appetite Left Arm Pain Score (Numeric/FACES): 3 - Related Data Allergies Allergy/AdvReac Type Severity Reaction Status Date / Time Greek walnut Allergy Cannot Verified 04/25/20 10:20 Remember shellfish derived Allergy Rash Verified 04/25/20 10:20 Home Meds: Home Meds Ascorbic Acid [Vitamin C] 1,000 mg PO DAILY 08/19/14 [History] Clopidogrel Bisulfate [Clopidogrel] 75 mg PO DAILY 08/19/14 [History] Enalapril Maleate 5 mg PO DAILY 08/19/14 [History] Furosemide 80 mg PO DAILY 08/19/14 [History] Simvastatin 20 mg PO BEDTIME 08/19/14 [History] Citalopram Hydrobromide [Celexa] 20 mg PO DAILY #0 08/21/14 [Rx] allopurinoL [Zyloprim] 150 mg PO DAILY #0 08/21/14 [Rx] Clindamycin Phosphate 1 applic TOP BID 01/22/19 [History] amLODIPine Besylate [Amlodipine Besylate] 10 mg PO DAILY 01/22/19 [History] Acetaminophen [Tylenol Extra Strength] 500 mg PO ASDIRECTED PRN 01/26/19 [History] Cyanocobalamin (Vitamin B-12) [Cyanocobalamin Injection] 1 each INJECT ASDIRECTED 01/26/19 [History] Hydrocortisone [Hydrocortisone 1% Crm] 1 each TOP ASDIRECTED 01/26/19 [History] Insulin Lispro Protamin/Lispro [Humalog Mix 75-25 Kwikpen] 20 units SQ ASDIRECTED 01/26/19 [History] Insulin Lispro Protamin/Lispro [Humalog Mix 75-25 Kwikpen] 40 units SQ ACBREAKFAST 01/26/19 [History] diphenhydrAMINE HCl/Zinc Acet [Benadryl Itch Stopping Crm] 1 each TOP DAILY PRN 01/26/19 [History] cephALEXin [Cephalexin] 500 mg PO QID 10 Days #40 tablet 03/25/19 [Rx] Past Medical History Cardiovascular History: Reports: CAD, Hypertension Gastrointestinal History: Reports: Other (See Below) Other Gastrointestinal History: ulcers Genitourinary History: Reports: Urinary Incontinence, UTI, Recurrent, Other (See Below) Other Genitourinary History: kidney infections, kidnes disease Musculoskeletal History: Reports: Other (See Below) Other Musculoskeletal History: elbow fx Psychiatric History: Reports: Anxiety, Depression Endocrine/Metabolic History: Reports: Other (See Below) Other Endocrine/Metabolic History: Diabetes, unknown type - Infectious Disease History Infectious Disease History: Reports: Other (See Below) Other Infectious Disease History: covid - October 2019 - Past Surgical History Neurological Surgical History: Reports: Laminectomy, Lumbar Spine Other Neurological Surgeries/Procedures: x2 - and 2019 Musculoskeletal Surgical History: Reports: ORIF Other Musculoskeletal Surgeries/Procedures:: elbow Social & Family History - Family History Family Medical History: No Pertinent Family History - Tobacco Use Tobacco Use Status *Q: Never Tobacco User - Caffeine Use Caffeine Use: Reports: Coffee - Recreational Drug Use Recreational Drug Use: No - Living Situation & Occupation Living situation: Reports: with Family Occupation: Retired ED ROS GENERAL - Review of Systems Review Of Systems: See Below Constitutional: Reports: Weakness. Denies: Fever, Chills, Malaise, Decreased Appetite HEENT: Reports: Sinus Problem, Other (lip swelling). Denies: Ear Pain, Throat Pain, Vertigo Respiratory: Reports: Shortness of Breath. Denies: Cough Cardiovascular: Reports: Edema. Denies: Chest Pain, Lightheadedness Endocrine: Denies: Fatigue GI/Abdominal: Denies: Abdominal Pain, Nausea : Reports: No Symptoms Musculoskeletal: Reports: Arm Pain, Leg Pain, Joint Pain, Muscle Pain Skin: Reports: No Symptoms Neurological: Reports: Weakness (left arm and leg) ED EXAM, GENERAL - Physical Exam Exam: See Below Exam Limited By: No Limitations General Appearance: Alert, WD/WN, Mild Distress Eye Exam: Bilateral Eye: EOMI, PERRL Ears: Normal External Exam, Normal TMs Nose: Normal Inspection, Normal Mucosa, No Blood Throat/Mouth: Normal Inspection, Other (patient has upper and lower lip swelling/angioedema. Left cheek swollen. Airway patent, no swelling noted.) Head: Facial Swelling Neck: Normal Inspection, Supple, Non-Tender Respiratory/Chest: No Respiratory Distress, Lungs Clear, Normal Breath Sounds Cardiovascular: Regular Rate, Rhythm GI/Abdominal: Normal Bowel Sounds, Soft, Non-Tender Extremities: Other (patient has movement to left arm and leg. Palmar grasp is weak to left hand, somewhat clumsy with point to point discretion to left hand. Left leg weaker with raising but has good flexion strength of foot. ) Neurological: Alert, Oriented, CN II-XII Intact Skin Exam: Warm, Dry Course - Vital Signs Last Recorded V/S: Last Vital Signs Temp 98.5 F 04/25/20 10:25 Pulse 67 04/25/20 11:53 Resp 18 04/25/20 11:53 BP 185/87 H 04/25/20 12:24 Pulse Ox 97 04/25/20 11:53 - Orders/Labs/Meds Orders: Active Orders 24 hr Category Date Time Status EKG Documentation Completion [RC] STAT Care 04/25/20 09:30 Active Head wo Cont [CT] Stat Exams 04/25/20 09:44 Taken Labs: Laboratory Tests 04/25/20 04/25/20 04/25/20 Range/Units 09:17 09:18 09:47 WBC 6.5 (5.0-10.0) 10^3/uL RBC 3.99 L (4.50-6.00) 10^6/uL Hgb 11.6 L (14.0-18.0) g/dL Hct 36.4 L (40.0-54.0) % MCV 91.2 (82.0-94.0) fL MCH 29.1 (27.0-32.0) pg MCHC 31.9 L (33.0-38.0) g/dL RDW Coeff of Adrian 14.8 (11.0-15.0) % Plt Count 333 (150-400) 10^3/uL Neut % (Auto) 70.2 (35-85) % Lymph % (Auto) 12.7 (10-55) % Wright % (Auto) 14.1 (0-16) % Eos % (Auto) 2.8 (0-5) % Baso % (Auto) 0.2 (0-3) % Neut # (Auto) 4.59 (1.80-7.00) 10^3/uL Lymph # (Auto) 0.83 L (1.00-4.80) 10^3/uL Wright # (Auto) 0.92 H (0.00-0.80) 10^3/uL Eos # (Auto) 0.18 (0.00-0.45) 10^3/uL Baso # (Auto) 0.01 10^3/uL PT 11.5 (9.7-12.3) SEC INR 1.14 (0.92-1.18) APTT 30.3 (23.2-32.3) SEC Sodium (136-145) mEq/L Potassium (3.5-5.0) mEq/L Chloride (98-106) mEq/L Carbon Dioxide (21-32) mmol/L BUN (7-18) mg/dL Creatinine (0.7-1.3) mg/dL Est Cr Clr Drug Dosing mL/min Estimated GFR (MDRD) (>=60) mL/min Glucose (75-99) mg/dL Calcium (8.4-10.1) mg/dL Creatine Kinase (35-232) U/L Troponin I (0.00-0.06) ng/mL SARS CoV-2 RNA Rapid BRIDGET Positive H (NEGATIVE) 04/25/20 Range/Units 09:47 WBC (5.0-10.0) 10^3/uL RBC (4.50-6.00) 10^6/uL Hgb (14.0-18.0) g/dL Hct (40.0-54.0) % MCV (82.0-94.0) fL MCH (27.0-32.0) pg MCHC (33.0-38.0) g/dL RDW Coeff of Adrian (11.0-15.0) % Plt Count (150-400) 10^3/uL Neut % (Auto) (35-85) % Lymph % (Auto) (10-55) % Wright % (Auto) (0-16) % Eos % (Auto) (0-5) % Baso % (Auto) (0-3) % Neut # (Auto) (1.80-7.00) 10^3/uL Lymph # (Auto) (1.00-4.80) 10^3/uL Wright # (Auto) (0.00-0.80) 10^3/uL Eos # (Auto) (0.00-0.45) 10^3/uL Baso # (Auto) 10^3/uL PT (9.7-12.3) SEC INR (0.92-1.18) APTT (23.2-32.3) SEC Sodium 134 L (136-145) mEq/L Potassium 4.6 (3.5-5.0) mEq/L Chloride 101 (98-106) mEq/L Carbon Dioxide 25 (21-32) mmol/L BUN 28 H (7-18) mg/dL Creatinine 2.0 H (0.7-1.3) mg/dL Est Cr Clr Drug Dosing 31.07 mL/min Estimated GFR (MDRD) 32 L (>=60) mL/min Glucose 260 H (75-99) mg/dL Calcium 7.9 L (8.4-10.1) mg/dL Creatine Kinase 113 (35-232) U/L Troponin I < 0.017 (0.00-0.06) ng/mL SARS CoV-2 RNA Rapid BRIDGET (NEGATIVE) Meds: Medications Discontinued Medications Generic Name Dose Route Start Last Admin Trade Name Freq PRN Reason Stop Dose Admin Clonidine HCl 0.1 mg 04/25/20 12:15 04/25/20 12:24 Catapres PO 04/25/20 12:16 0.1 mg PREPRO ONE Administration Methylprednisolone Sodium Succinate 125 mg 04/25/20 10:08 04/25/20 10:18 Solu-Medrol IVPUSH 04/25/20 10:09 125 mg NOW ONE Administration - Re-Assessments/Exams Free Text/Narrative Re-Assessment/Exam: 04/25/20 1010 Labs are normal. Solu Medrol ordered for angioedema. Awaiting CT report. Departure - Departure Time of Disposition: 12:28 Disposition: Home, Self-Care 01 Condition: Fair Clinical Impression: Angioedema, Hypertensive urgency, Polyarthritis - Discharge Information *PRESCRIPTION DRUG MONITORING PROGRAM REVIEWED*: No *COPY OF PRESCRIPTION DRUG MONITORING REPORT IN PATIENT ALLISON: No Instructions: Angioedema, [id number] Forms: ED Department Discharge Additional Instructions: 1. Rest 2. Start prednisone 40 mg tomorrow 3. Hold Enalapril 4. Monitor blood pressure QID, report findings to Dr. Maradiaga on Wednesday or if needed tomorrow 5. Covid precautions Sepsis Event Note (ED) - Evaluation Sepsis Screening Result: No Definite Risk - Focused Exam Vital Signs: Vital Signs Temp Pulse Resp BP BP Pulse Ox 04/25/20 12:24 185/87 H 04/25/20 11:53 67 18 185/87 H 97 04/25/20 10:25 98.5 F 59 L 18 182/78 H 100 04/25/20 09:50 98.2 F 52 L 18 190/77 H 99 04/25/20 09:30 64 18 186/79 H 96 04/25/20 09:24 98.1 F 64 18 174/77 H 99 - My Orders Last 24 Hours: My Active Orders 04/25/20 09:30 EKG Documentation Completion [RC] STAT 04/25/20 09:44 Head wo Cont [CT] Stat - Assessment/Plan Last 24 Hours: My Active Orders 04/25/20 09:30 EKG Documentation Completion [RC] STAT 04/25/20 09:44 Head wo Cont [CT] Stat
[2020-04-25 11:54] VITALS: BP 185/87; PULSE 67
[2020-04-25] MEDS: cloNIDine 0.1 MG Tab PO ONE (12:24)
== END 2020-04-25 13:00 | disposition home or self-care (01) ==
LOC: CC.ED 09:13
DX: T78.3XXA Angioneurotic edema, initial encounter (principal); U07.1 COVID-19; I16.0 Hypertensive urgency; M13.0 Polyarthritis, unspecified; I25.10 Atherosclerotic heart disease of native coronary artery without angina pectoris; I10 Essential (primary) hypertension; F41.9 Anxiety disorder, unspecified; F32.9 Major depressive disorder, single episode, unspecified; E11.9 Type 2 diabetes mellitus without complications; R20.0 Anesthesia of skin; Z91.018 Allergy to other foods; Z91.013 Allergy to seafood; Z79.02 Long term (current) use of antithrombotics/antiplatelets; Z79.4 Long term (current) use of insulin; Z79.899 Other long term (current) drug therapy
CPT/HCPCS: 36415; 70450; 80048; 82550; 84484; 85025; 85610; 85730; 93005; 93010; 96374; 99284; 99284-25; A9270-GY; J2930; U0002

== ENCOUNTER 2022-01-29 11:46 | Inpatient (IN) | payer MEDICARE, OTHER ==
[2022-01-29 12:25] LABS: CHLORIDE,CL 103 mEq/L (98-106); SODIUM,NA 140 mEq/L (136-145)
[2022-01-29 12:27] LABS: ESTIMATED GFR 15 mL/min (>=60)
[2022-01-29] MEDS ORDERED: Sodium Chloride 0.9% 10 ML Syringe FLUSH PRN (13:38)
[2022-01-29] MEDS ORDERED: Furosemide 40 MG/4 ML VIAL IVPUSH ONE (13:38)
[2022-01-29] MEDS: Nitroglycerin 2% Oint 1 GM UD Packet TOP SCH ×2 (15:27→20:34)
[2022-01-29] MEDS ORDERED: Triamcinolone Acetonide 0.1% Oint 15 GM Tube TOP PRN (15:33)
[2022-01-29] MEDS ORDERED: Heparin Sodium 5,000 Units/ML Vial SUBCUT SCH (16:00)
[2022-01-29] MEDS ORDERED: Hydrocortisone 2.5% Crm 30 GM Tube TOP SCH (17:15)
[2022-01-29] MEDS ORDERED: Insulin NPH HUM/REG Insulin HM 100 UNIT/ML 3 ML Vial SQ SCH (17:30)
[2022-01-29] MEDS: Furosemide 40 MG/4 ML VIAL IVPUSH SCH (20:34)
[2022-01-29] MEDS: Fluticasone NASAL Spray 16 GM Bottle NAS SCH (20:35)
[2022-01-29] MEDS: Polyvinyl Alcohol 1.4% Ophth Soln 15 ML Bottle EYEBOTH SCH (20:35)
[2022-01-29] MEDS: Sodium Bicarbonate 650 MG Tab PO SCH (20:35)
[2022-01-29] MEDS: Melatonin 3 MG Tab PO SCH (20:35)
[2022-01-29] MEDS: Calcium Carbonate/Vitamin D3 1250 MG-5 MCG Tab PO SCH (20:35)
[2022-01-29] MEDS: Heparin Sodium 5,000 Units/ML Vial SUBCUT SCH (20:42)
[2022-01-30] MEDS: Nitroglycerin 2% Oint 1 GM UD Packet TOP SCH ×4 (03:38→20:44)
[2022-01-30] MEDS: Furosemide 40 MG/4 ML VIAL IVPUSH SCH ×2 (07:56→19:37)
[2022-01-30] MEDS: Heparin Sodium 5,000 Units/ML Vial SUBCUT SCH ×2 (07:56→19:38)
[2022-01-30] MEDS: Loratadine 10 MG Tab PO SCH (07:57)
[2022-01-30] MEDS: Metoprolol Succinate 25 MG Tab.ER PO SCH (07:57)
[2022-01-30] MEDS: Clopidogrel 75 MG Tab PO SCH (07:57)
[2022-01-30] MEDS: amLODIPine 10 MG Tab PO SCH (07:58)
[2022-01-30] MEDS: Allopurinol 100 MG Tab PO SCH (07:58)
[2022-01-30] MEDS: Citalopram 10 MG Tab PO SCH (07:58)
[2022-01-30] MEDS: Isosorbide Mononitrate 60 MG Tab.ER PO SCH (07:58)
[2022-01-30] MEDS: Calcium Carbonate/Vitamin D3 1250 MG-5 MCG Tab PO SCH ×2 (07:58→19:38)
[2022-01-30] MEDS ORDERED: Insulin NPH HUM/REG Insulin HM 100 UNIT/ML 3 ML Vial SQ SCH (08:00)
[2022-01-30] MEDS ORDERED: Citalopram 10 MG Tab PO SCH (08:00)
[2022-01-30] MEDS: Polyvinyl Alcohol 1.4% Ophth Soln 15 ML Bottle EYEBOTH SCH ×3 (08:14→19:39)
[2022-01-30] MEDS: Sodium Bicarbonate 650 MG Tab PO SCH ×2 (10:33→19:38)
[2022-01-30] MEDS ORDERED: 50% Dextrose in Water 50 ML Syringe IVPUSH PRN (10:59)
[2022-01-30] MEDS ORDERED: Glucagon,Human Recombinant 1 MG Vial IM PRN (10:59)
[2022-01-30] MEDS ORDERED: Insulin Regular, Human 100 Units/ML 3 ML Vial SUBCUT SCH (11:00)
[2022-01-30] MEDS: Morphine 2 MG/ML SYRINGE IVPUSH PRN ×2 (15:32→17:39)
[2022-01-30] MEDS: Insulin Regular, Human 100 Units/ML 3 ML Vial SUBCUT SCH ×2 (17:38→20:42)
[2022-01-30] MEDS: Melatonin 3 MG Tab PO SCH (19:37)
[2022-01-30] MEDS: Fluticasone NASAL Spray 16 GM Bottle NAS SCH (19:39)
[2022-01-31] MEDS: Nitroglycerin 2% Oint 1 GM UD Packet TOP SCH ×4 (03:04→21:50)
[2022-01-31] MEDS: Morphine 2 MG/ML SYRINGE IVPUSH PRN ×3 (06:03→16:16)
[2022-01-31] MEDS: Heparin Sodium 5,000 Units/ML Vial SUBCUT SCH ×2 (08:36→19:38)
[2022-01-31] MEDS: Furosemide 40 MG/4 ML VIAL IVPUSH SCH ×2 (08:36→19:38)
[2022-01-31] MEDS: Ondansetron 4 MG/2 ML SDV IV PRN (08:38)
[2022-01-31] MEDS: Polyvinyl Alcohol 1.4% Ophth Soln 15 ML Bottle EYEBOTH SCH ×3 (08:52→19:42)
[2022-01-31] MEDS: Insulin Regular, Human 100 Units/ML 3 ML Vial SUBCUT SCH ×4 (08:55→19:52)
[2022-01-31] MEDS: Citalopram 10 MG Tab PO SCH (08:56)
[2022-01-31] MEDS: Loratadine 10 MG Tab PO SCH (08:56)
[2022-01-31] MEDS: Clopidogrel 75 MG Tab PO SCH (08:57)
[2022-01-31] MEDS: Calcium Carbonate/Vitamin D3 1250 MG-5 MCG Tab PO SCH ×2 (08:57→19:40)
[2022-01-31] MEDS: Metoprolol Succinate 25 MG Tab.ER PO SCH (08:58)
[2022-01-31] MEDS: amLODIPine 10 MG Tab PO SCH (08:58)
[2022-01-31] MEDS: Isosorbide Mononitrate 60 MG Tab.ER PO SCH (08:58)
[2022-01-31] MEDS: Allopurinol 100 MG Tab PO SCH (08:59)
[2022-01-31] MEDS: Sodium Bicarbonate 650 MG Tab PO SCH ×2 (08:59→19:40)
[2022-01-31] MEDS: Acetaminophen 325 MG Tab PO PRN (19:39)
[2022-01-31] MEDS: Melatonin 3 MG Tab PO SCH (19:41)
[2022-01-31] MEDS: Fluticasone NASAL Spray 16 GM Bottle NAS SCH (19:42)
[2022-02-01] MEDS: Morphine 2 MG/ML SYRINGE IVPUSH PRN ×4 (00:54→15:02)
[2022-02-01] MEDS: Nitroglycerin 2% Oint 1 GM UD Packet TOP SCH ×4 (03:10→21:02)
[2022-02-01] MEDS: Ondansetron 4 MG/2 ML SDV IV PRN (04:23)
[2022-02-01] MEDS: Furosemide 40 MG/4 ML VIAL IVPUSH SCH ×2 (07:48→19:33)
[2022-02-01] MEDS: Loratadine 10 MG Tab PO SCH (07:55)
[2022-02-01] MEDS: Citalopram 10 MG Tab PO SCH (07:55)
[2022-02-01] MEDS: Allopurinol 100 MG Tab PO SCH (07:55)
[2022-02-01] MEDS: Isosorbide Mononitrate 60 MG Tab.ER PO SCH (07:55)
[2022-02-01] MEDS: Clopidogrel 75 MG Tab PO SCH (07:55)
[2022-02-01] MEDS: Calcium Carbonate/Vitamin D3 1250 MG-5 MCG Tab PO SCH ×2 (07:55→19:33)
[2022-02-01] MEDS: Metoprolol Succinate 25 MG Tab.ER PO SCH (07:56)
[2022-02-01] MEDS: LORazepam 0.5 MG Tab PO PRN (07:56)
[2022-02-01] MEDS: amLODIPine 10 MG Tab PO SCH (07:56)
[2022-02-01] MEDS: Heparin Sodium 5,000 Units/ML Vial SUBCUT SCH ×2 (07:57→19:32)
[2022-02-01] MEDS: Insulin Regular, Human 100 Units/ML 3 ML Vial SUBCUT SCH ×4 (08:29→19:38)
[2022-02-01] MEDS: Polyvinyl Alcohol 1.4% Ophth Soln 15 ML Bottle EYEBOTH SCH ×3 (08:30→19:40)
[2022-02-01] MEDS: Ondansetron 4 MG Tab.DIS PO PRN (08:31)
[2022-02-01] MEDS: Sodium Bicarbonate 650 MG Tab PO SCH ×2 (08:34→19:34)
[2022-02-01] MEDS ORDERED: Morphine 2 MG/ML SYRINGE IVPUSH ONE (15:35)
[2022-02-01] MEDS: Acetaminophen 325 MG Tab PO PRN (19:33)
[2022-02-01] MEDS: Melatonin 3 MG Tab PO SCH (19:33)
[2022-02-01] MEDS: Fluticasone NASAL Spray 16 GM Bottle NAS SCH (19:40)
[2022-02-02] MEDS: Nitroglycerin 2% Oint 1 GM UD Packet TOP SCH ×4 (03:00→21:51)
[2022-02-02] MEDS: Morphine 2 MG/ML SYRINGE IVPUSH PRN ×3 (06:49→22:17)
[2022-02-02] MEDS: Ondansetron 4 MG/2 ML SDV IV PRN ×2 (06:50→22:17)
[2022-02-02] MEDS: Furosemide 40 MG/4 ML VIAL IVPUSH SCH ×2 (08:23→19:27)
[2022-02-02] MEDS: Heparin Sodium 5,000 Units/ML Vial SUBCUT SCH ×2 (08:23→19:27)
[2022-02-02] MEDS: Loratadine 10 MG Tab PO SCH (08:24)
[2022-02-02] MEDS: Calcium Carbonate/Vitamin D3 1250 MG-5 MCG Tab PO SCH ×2 (08:25→19:27)
[2022-02-02] MEDS: Isosorbide Mononitrate 60 MG Tab.ER PO SCH (08:25)
[2022-02-02] MEDS: Citalopram 10 MG Tab PO SCH (08:25)
[2022-02-02] MEDS: amLODIPine 10 MG Tab PO SCH (08:25)
[2022-02-02] MEDS: Clopidogrel 75 MG Tab PO SCH (08:25)
[2022-02-02] MEDS: Metoprolol Succinate 25 MG Tab.ER PO SCH (08:25)
[2022-02-02] MEDS: Allopurinol 100 MG Tab PO SCH (08:26)
[2022-02-02] MEDS: Polyvinyl Alcohol 1.4% Ophth Soln 15 ML Bottle EYEBOTH SCH ×3 (08:30→19:33)
[2022-02-02] MEDS: Insulin Regular, Human 100 Units/ML 3 ML Vial SUBCUT SCH ×4 (08:30→19:45)
[2022-02-02] MEDS: Sodium Bicarbonate 650 MG Tab PO SCH ×2 (08:33→19:27)
[2022-02-02] MEDS: Ondansetron 4 MG Tab.DIS PO PRN (11:55)
[2022-02-02] MEDS: Acetaminophen 325 MG Tab PO PRN ×2 (17:55→21:51)
[2022-02-02] MEDS: Melatonin 3 MG Tab PO SCH (19:27)
[2022-02-02] MEDS: Fluticasone NASAL Spray 16 GM Bottle NAS SCH (19:33)
[2022-02-03] MEDS: Ondansetron 4 MG Tab.DIS PO PRN (02:00)
[2022-02-03] MEDS: LORazepam 0.5 MG Tab PO PRN (02:05)
[2022-02-03] MEDS: Morphine 2 MG/ML SYRINGE IVPUSH PRN (02:17)
[2022-02-03] MEDS: Nitroglycerin 2% Oint 1 GM UD Packet TOP SCH ×2 (03:00→12:06)
[2022-02-03] MEDS: Metoprolol Succinate 25 MG Tab.ER PO SCH (07:44)
[2022-02-03] MEDS: Isosorbide Mononitrate 60 MG Tab.ER PO SCH (07:44)
[2022-02-03] MEDS: amLODIPine 10 MG Tab PO SCH (07:48)
[2022-02-03] MEDS: Citalopram 10 MG Tab PO SCH (07:48)
[2022-02-03] MEDS: Clopidogrel 75 MG Tab PO SCH (07:48)
[2022-02-03] MEDS: Allopurinol 100 MG Tab PO SCH (07:48)
[2022-02-03 07:49] VITALS: BP 123/73; PULSE 105
[2022-02-03] MEDS: Furosemide 40 MG/4 ML VIAL IVPUSH SCH (07:49)
[2022-02-03] MEDS: Calcium Carbonate/Vitamin D3 1250 MG-5 MCG Tab PO SCH (07:49)
[2022-02-03] MEDS: Polyvinyl Alcohol 1.4% Ophth Soln 15 ML Bottle EYEBOTH SCH (07:49)
[2022-02-03] MEDS: Loratadine 10 MG Tab PO SCH (07:49)
[2022-02-03] MEDS: Heparin Sodium 5,000 Units/ML Vial SUBCUT SCH (07:50)
[2022-02-03] MEDS: Insulin Regular, Human 100 Units/ML 3 ML Vial SUBCUT SCH (08:45)
[2022-02-03] MEDS: Sodium Bicarbonate 650 MG Tab PO SCH (10:31)
[2022-02-03] MEDS ORDERED: Sodium Chloride 0.9% 10 ML Syringe FLUSH PRN (11:33)
== END 2022-02-03 13:43 | disposition home or self-care (01) | DRG 292 ==
LOC: CC.FCMC 11:46 → CC.MS 11:46 → UNDOADMIN 13:28 → CC.MS 13:35 → UNDOADMIN 13:35 → CC.MS 13:38
PROVIDERS: ADMIT Nurse Practitioner Family; ATTEND Nurse Practitioner Family
DX: I13.2 Hypertensive heart and chronic kidney disease with heart failure and with stage 5 chronic kidney disease, or end stage renal disease (principal); N17.9 Acute kidney failure, unspecified; N18.5 Chronic kidney disease, stage 5; R77.8 Other specified abnormalities of plasma proteins; Z20.822 Contact with and (suspected) exposure to COVID-19; I25.10 Atherosclerotic heart disease of native coronary artery without angina pectoris; F41.9 Anxiety disorder, unspecified; Z96.698 Presence of other orthopedic joint implants; I50.9 Heart failure, unspecified; Z66 Do not resuscitate; F32.A Depression, unspecified; E11.22 Type 2 diabetes mellitus with diabetic chronic kidney disease; Z79.4 Long term (current) use of insulin; Z86.16 Personal history of COVID-19; Z79.1 Long term (current) use of non-steroidal anti-inflammatories (NSAID); Z87.440 Personal history of urinary (tract) infections; Z88.8 Allergy status to other drugs, medicaments and biological substances; Z91.013 Allergy to seafood; Z79.899 Other long term (current) drug therapy; Z87.891 Personal history of nicotine dependence
CPT/HCPCS: 36415; 51702; 71046; 80053; 81001; 82947; 83880; 84484; 85025; 85379; 85730; 86140; 93005; 93010; 99223; 99232; 99233; 99239; A9270-GY; J1644; J1815-GY; J1940; J2270; J2405